=== PATIENT | female | born 1985 | race Caucasian/White ===

== ENCOUNTER 2016-06-30 11:21 | Emergency (ER) | payer MEDICAID ==
[2016-06-30 11:28] VITALS: BP 126/69
[2016-06-30] MEDS ORDERED: Tetan/Diph/Pertus SYR(Tdap)* 0.5 ML SYR(BOOSTRIX) use SYR IM ONE (11:32)
--- NOTE | 2016-06-30 11:36 | UC ---
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 Tet not up to date - History Of Current Complaint Chief Complaint: UCLaceration Stated Complaint: FINGER LACERATION Time Seen by Provider: 06/30/16 11:32 Hx Obtained From: Patient Laceration Location: Finger - RMF Mechanism Of Injury: Sharp Trauma Onset/Duration: Sudden Onset Severity: Moderate Pain Intensity: 6 Pain Scale Used: 0-10 Numeric Aggravating Factors: Movement Related History: Dominant Hand Right - Allergies/Home Medications Allergies/Adverse Reactions: Allergies Allergy/AdvReac Type Severity Reaction Status Date / Time Acetaminophen Allergy RASH,HIVES, Verified 01/05/16 10:21 [From Darvocet-N] ITCHING Cephalexin [From Keflex] Allergy Rash And Verified 01/05/16 10:21 Itching Penicillins [PCN] Allergy Rash Verified 01/05/16 10:21 Propoxyphene Allergy RASH,HIVES, Verified 01/05/16 10:21 [From Darvocet-N] ITCHING Home Medications: Home Medications Biotin 1 06/30/16 [History] PMH/Surg Hx/FS Hx/Imm Hx Previously Healthy: Yes Psychological History Of: Reports: Anxiety, Depression - Surgical History Surgical History: Yes Surgery Procedure, Year, and Place: 2002 LEFT ANKLE ORIF, [place]. 2003 [place]CRE[place] [facility] [place] B[place]AL BREAST REDUCTION[place]. 2004 MELANOMA REMOVED FROM BACK, [place]. 2008 & 2010 ARTHROSCOPIC SURGERY LEFT ANKLE, [facility] ;SPECIALIST; marcelina herrera 11/28/15 - Family History Known Family History: Negative: Cardiac Disease, Hypertension, Diabetes - Social History Alcohol Use: None Substance Use Type: None Smoking Status (MU): Never Smoked Tobacco Have You Smoked in the Last Year: No - Immunization History Most Recent Influenza Vaccination: unknown Most Recent Tetanus Shot: 03/02/14 Most Recent Pneumonia Vaccination: none Review of Systems Constitutional: Negative Skin: Negative Eyes: Negative ENT: Negative Respiratory: Negative Cardiovascular: Negative Gastrointestinal: Negative Genitourinary: Negative Motor: Decreased ROM Neurovascular: Negative Musculoskeletal: Negative Neurological: Negative Psychological: Negative All Other Systems Reviewed And Are Negative: Yes Physical Exam Triage Information Reviewed: Yes Appearance: Well-Appearing, No Pain Distress, Well-Nourished Vital Signs: Initial Vital Signs Temp 97.5 F 01/01/17 11:24 Pulse 61 06/30/16 11:24 Resp 18 06/30/16 11:24 BP 126/69 06/30/16 11:24 Pulse Ox 100 06/30/16 11:24 Eyes: Positive: Conjunctiva Clear ENT: Positive: Hearing grossly normal. Negative: Nasal congestion, Nasal drainage, Trismus, Muffled/hoarse voice Neck: Positive: Supple Respiratory: Positive: Lungs clear, Normal breath sounds, No respiratory distress, No accessory muscle use Cardiovascular: Positive: RRR, No Murmur Musculoskeletal: Positive: ROM Limited @ - RMF minimal ablity to flex DIP Neurological Exam: Other - decreased sensation radial aspect of RMF Skin Exam: Other - see image Laceration Repair - Laceration Repair 1 Description: Linear Laceration Size After Repair: Length (cm) - 1.9, Width (mm) - 2, Depth (mm) - 3- 4 Modified For Repair: No Type Injection: Digital Anesthesia Used: 1.0% Lido, 0.25% Marcaine Additive Used (in ml): Bicarb Cleansing Completed Via Routine Prep: Yes Irrigation With Pressure Irrigation Device: Yes Closure Material: Sutures Closure Method: Single Layer Suture Of: Skin Suture Type: Nylon - 5 5-0 Laceration Course/Dx - Differential Dx - Laceration/Wound Provider Diagnoses: finger laceration (RMF). suspected flexor tendon laceration. ?digital nerve laceration Discharge - Discharge Plan Condition: Stable Disposition: HOME Prescriptions: HYDROcodone/ACETAMIN 5-325 MG* [[place] 5-325 TAB*] 1 tab PO Q4H PRN #8 tab MDD 2 PRN Reason: Pain Patient Education Materials: Finger Laceration (ED), Tendon Laceration (ED) Referrals: Argelia Estrada MD [Medical Doctor] - (Call tomorrow and make an appt. Let them know you were seen here and we suspect you have laceration a flexor tendon in you right middle finger. You may also have lacerated a digital nerve.) Additional Instructions: elevate elevate elevate splint advil 2-3 4x day with food for pain recheck for concerns of infection you may remove your dressing in about 48 hours...gently clean with soap and water...dry your finger and apply a thin film of antibiotic ointment (I like aquaphor healing ointment or polysporin) reapply splint Images Hands: 1 - laceration/unable to flex dip. decreased sensation ulnar aspect of finger
[2016-06-30] MEDS ORDERED: Ibuprofen TAB* 600 MG PO ONE ×2 (11:48)
[2016-06-30] MEDS ORDERED: Bupivacaine 0.25% SDV* 30 ML ONE ×2 (11:51)
[2016-06-30] MEDS ORDERED: Lidocaine 1% MPF* 2 ML VIAL ONE ×2 (11:51)
[2016-06-30] MEDS ORDERED: Sodium Bicarbonate 8.4% IV* 50 ML VIAL ONE ×2 (11:51)
--- NOTE | 2016-06-30 12:18 | RAD ---
INDICATION: Laceration to right middle finger from serrated bread knife TECHNIQUE: 3 views of the right middle finger were obtained. FINDINGS: The bones are normal alignment. Joint spaces appear maintained. No fracture is seen. Soft tissue swelling and laceration is apparent overlying the palmar aspect of the right middle finger middle phalanx. IMPRESSION: SOFT TISSUE INJURY WITHOUT EVIDENCE OF ACUTE BONY ABNORMALITY OR SUBCUTANEOUS FOREIGN BODY.
== END 2016-06-30 13:11 | disposition home or self-care (01) ==
LOC: UCEAST 11:21
DX: S61.212A Laceration without foreign body of right middle finger without damage to nail, initial encounter (principal); W26.0XXA Contact with knife, initial encounter; Y93.G1 Activity, food preparation and clean up; Y92.9 Unspecified place or not applicable; Y99.9 Unspecified external cause status; Z23 Encounter for immunization
CPT/HCPCS: 12001; 12031; 73140; 90471; 90715; 99212; A9270-GY; G0463

== ENCOUNTER 2016-08-11 09:54 | Emergency (ER) | payer MEDICAID ==
[2016-08-11 10:13] VITALS: BP 123/74
--- NOTE | 2016-08-11 10:43 | UC ---
Hand/Wrist HPI - HPI Summary HPI Summary: ON 06/30/16 CUT RIGHT THIRD FINGER WITH BREAD KNIFE. CAME IN FOR LACERATION REPAIR , BUT HAD ALLERGIC REACTION TO HIBICLEANS. AT THE TIME THERE WAS CONCERN FOR FLEXOR TENDON DAMAGE, BUT AFTER SWELLING RETURNED TO NORMAL SO DID RANGE OF MOTION. HOWEVER, FOR LAST THREE DAYS, SITE OF LACERATION HAS BECOME RED, SWOLLEN AND TENDER. NO DISCHARGE. ABLE TO FLEX FINGER BUT ONLY TO 90 DEGREES. - History Of Current Complaint Chief Complaint: UCUpperExtremity Stated Complaint: FINGER PAIN Time Seen by Provider: 08/11/16 10:02 Hx Obtained From: Patient Hx Last Menstrual Period: on murina Onset/Duration: Gradual Onset, Lasting Days, Still Present, Worse Since - THIS MORNING Severity Initially: Moderate Severity Currently: Mild Character Of Pain: Dull, Aching Aggravating Factor(s): Flexion, Other - TOUCH Associated Signs And Symptoms: Positive: Swelling, Redness Related History: Dominant Hand Right - Allergies/Home Medications Allergies/Adverse Reactions: Allergies Allergy/AdvReac Type Severity Reaction Status Date / Time Acetaminophen Allergy RASH,HIVES, Verified 01/05/16 10:21 [From Darvocet-N] ITCHING Cephalexin [From Keflex] Allergy Rash And Verified 01/05/16 10:21 Itching Chlorhexidine Allergy Swelling Verified 08/11/16 10:14 [From Hibiclens] Penicillins [PCN] Allergy Rash Verified 01/05/16 10:21 Propoxyphene Allergy RASH,HIVES, Verified 01/05/16 10:21 [From Darvocet-N] ITCHING hib Allergy Severe Swelling Uncoded 08/11/16 10:14 PMH/Surg Hx/FS Hx/Imm Hx Previously Healthy: Yes Endocrine History Of: Denies: Diabetes, Thyroid Disease Cardiovascular History Of: Denies: Cardiac Disorders, Hypertension Respiratory History Of: Denies: COPD, Asthma GI/ History Of: Denies: Ulcer Psychological History Of: Reports: Anxiety, Depression - Surgical History Surgical History: Yes Surgery Procedure, Year, and Place: 2002 LEFT ANKLE ORIF, [place]. 2003 [place] [facility] [place]AL BREAST REDUCTION[place]. 2004 MELANOMA REMOVED FROM [facility], [place] gastric bypass 10/2015. 2008 & 2010 ARTHROSCOPIC SURGERY LEFT ANKLE, [facility] ;SPECIALIST; marcelina n y 11/27 - Family History Known Family History: Negative: Cardiac Disease, Hypertension, Diabetes - Social History Occupation: Employed Full-time Lives: With Family Alcohol Use: None Substance Use Type: None Smoking Status (MU): Never Smoked Tobacco Have You Smoked in the Last Year: No - Immunization History Most Recent Influenza Vaccination: unknown Most Recent Tetanus Shot: 03/02/14 Most Recent Pneumonia Vaccination: none Review of Systems Constitutional: Negative Skin: Other - REDNESS AND SWELLING RIGHT THIRD FINGER Eyes: Negative ENT: Negative Respiratory: Negative Cardiovascular: Negative Gastrointestinal: Negative Genitourinary: Negative Motor: Decreased ROM - RIGHT THIRD FINGER Neurovascular: Negative Musculoskeletal: Negative Neurological: Negative Psychological: Negative All Other Systems Reviewed And Are Negative: Yes Physical Exam Triage Information Reviewed: Yes Appearance: Well-Appearing, No Pain Distress, Well-Nourished Vital Signs: Initial Vital Signs Temp 97.3 F 08/11/16 10:06 Pulse 70 08/11/16 10:06 Resp 16 08/11/16 10:06 BP 123/74 08/11/16 10:06 Pulse Ox 100 08/11/16 10:06 Vital Signs Reviewed: Yes Eye Exam: Normal Eyes: Positive: Conjunctiva Clear ENT Exam: Normal ENT: Positive: Normal ENT inspection, Hearing grossly normal, TMs normal Dental Exam: Normal Neck exam: Normal Neck: Positive: Supple, Nontender, No Lymphadenopathy Respiratory Exam: Normal Respiratory: Positive: Chest non-tender, Lungs clear, Normal breath sounds, No respiratory distress, No accessory muscle use Cardiovascular Exam: Normal Cardiovascular: Positive: RRR, No Murmur, Pulses Normal, Brisk Capillary Refill Abdominal Exam: Normal Musculoskeletal: Positive: Strength Intact, ROM Limited @ - RIGHT THIRD FINGER 90 DEGREES OF FLEXION, Edema @ - RIGHT THIRD FINGER Neurological Exam: Normal Psychological Exam: Normal Psychological: Positive: Normal Response To Family Skin Exam: Normal Hand/Wrist Course/Dx - Differential Dx/Diagnosis Differential Diagnosis/HQI/PQRI: Cellulitis, Foreign Body, Infection, Puncture Wound, Sprain, Strain, Tendonitis, Tenosynovitis Provider Diagnoses: RIGHT THIRD FINGER CELLULITIS AT LACERATION REPAIR SITE - Physician Notifications Instructed by Provider To: Have Pt Call For Appt. Discharge - Discharge Plan Condition: Stable Disposition: HOME Prescriptions: Azithromycin TAB* [Zithromax TAB (Z-TEREZA) 250 mg #6 tabs] 250 mg PO DAILY #6 tab Patient Education Materials: Cellulitis (ED) Referrals: Jace Torres MD [Medical Doctor] - Shy Figueroa NP [Primary Care Provider] - Additional Instructions: PLEASE BEGIN COURSE OF ANTIBIOTICS AND CALL DR. TORRES AND SET UP APPOINTMENT FOR EVALUATION OF COMPLICATIONS REGARDING LACERATION
== END 2016-08-11 10:41 | disposition home or self-care (01) ==
LOC: UCEAST 09:54
DX: S61.212S Laceration without foreign body of right middle finger without damage to nail, sequela (principal); L03.011 Cellulitis of right finger; W26.0XXS Contact with knife, sequela; Y92.9 Unspecified place or not applicable; Z88.6 Allergy status to analgesic agent; Z88.1 Allergy status to other antibiotic agents; Z88.0 Allergy status to penicillin; Z98.84 Bariatric surgery status
CPT/HCPCS: 99212; G0463

== ENCOUNTER → 2016-09-30 08:55 | Day surgery (SDC) | payer MEDICAID, OTHER ==
[~2016-09-30 08:55] MED LIST: Buffered Lidocaine 1% SYRIN* 3 ML/SYR SYRINGE INTRADERM ONE; Bupivacaine 0.25% SDV* 30 ML ONE; Clindamycin 900 MG IVPREMIX(* 900 MG/50 ML SDV IV ONE; Lidocaine 2% PF* 5 ML VIAL ONE; Midazolam* 1 MG/ML 5 ML VIAL (5 MG) ONE; Ondansetron INJ* 2 MG/ML VIAL IV PRN; Propofol* 10 MG/ML 20 ML BTL IV PUSH ONE; fentaNYL* 50 MCG/ML 2 ML VIAL (100 MCG VIAL) ONE
[2016-09-30 13:34] VITALS: BP 120/65
--- NOTE | 2016-10-01 03:49 | OP ---
DATE OF OPERATION: 09/30/16 - [facility] DATE OF : 81 SURGEON: Jace Rice MD SALESPERSON RECREATIONAL VEHICLES: CODY Snow ANESTHESIOLOGIST: Dr. Davis. ANESTHESIA: Local MAC with digital block. PRE-OP DIAGNOSIS: Right middle finger radial digital nerve injury. POST-OP DIAGNOSIS: Right middle finger radial digital nerve partial laceration. OPERATIVE PROCEDURE: 1. Exploration, right middle finger radial digital nerve. 2. Debridement of small right middle finger radial digital nerve neuroma and neurolysis. 3. Wrapping of right middle finger radial digital nerve with AxoGuard nerve wrap. INDICATIONS: Sigrid is a 31-year-old who a few months ago had a traumatic laceration over the mid aspect of the middle phalanx over the radial digital nerve. Initially, it was feeling okay, but she did have diminished sensation, although not absent on the tip of the right middle finger. About short time later, she developed extensive pain in the right middle finger. I had seen her and she worked with therapy to get all of her motion back and we gave it some time to see if it would improve. Ultimately, she did get all of her motion back ; however, she is left with a painful area over the proximal middle phalanx and PIP joint over the radial digital nerve that hurts when she flexes and extends the finger and uses the hand. The finger tip sensation has remained completely unchanged since the injury in that there is still some sensation present, but it is definitely abnormal. Her Tinel sign was not advancing whatsoever. I had gotten an MRI and I did not see any other masses or any other reason to cause the pain in the right middle finger. Since she had plateaued in her improvement and she had no advancement in her Tinel sign, we talked about exploring the digital nerve and if there was a significant neuroma that was most of the size of the nerve, then I would resect the entire neuroma and any intact fibers and bridge the gap with a nerve graft. ESTIMATED BLOOD LOSS: 5 mL. COMPLICATIONS: None. FINDINGS: Very small old partial thickness injury to the radial digital nerve with just a very small neuroma formation. The vast majority of the nerve was intact. DESCRIPTION OF PROCEDURE: Sigrid was in the preoperative holding area and the correct site, side, and procedure were identified. We came back to the operating room where she got some anesthesia and then I performed a digital block with 0.25% Marcaine. The arm was then prepped and draped in the usual fashion with Betadine as she has an allergy to CHLORHEXIDINE and CHLORAPREP. A formal time-out was performed. We began by exsanguinating the extremity with each Esmarch and then the tourniquet was inflated to 250 mmHg. The mid axial approach to the finger was made over the PIP joint and down the length of the proximal phalanx coming back just a little bit over the A1 wilman area to facilitate raising the flap. The traumatic oblique laceration was then incorporated and the incision was brought back in Meera type fashion over the middle phalanx and then back to the DIP flexion crease. The radial digital nerve vascular bundle was identified proximally. It was then dissected out and full thickness flap was raised right off the flexor tendon sheath to expose the entire course of the radial digital nerve. Proximally over the middle phalanx where she had been having some pain, the nerve looked completely healthy and there were no signs of injury. When I got to the PIP joint, just 1 mm to distal to that, there was what looked like had been a very small partial thickness injury to the nerve. The neurolysis was then continued out distally and the portion of the nerve distal to this looked healthy and intact. I then attempted to bring in the microscope to get a better look at this; however, the only drape available for microscope was malfunctioning, so we were not able to do this. Under 3.5 times loupe magnification, I then brought in the jeweler forceps and the microdissecting scissors. The area of question was neurolysed and dissected free. The small neuroma coming off the nerve was debrided and clipped back between healthy tissue. Once I had completely debrided this, the nerve under loupe magnification looked very nice. Certainly, the vast majority of the nerve was intact and enough that I would never consider excising the rest of the nerve or excising that portion of the nerve is too many uninjured health axons would be compromised. I felt like I had healthy enough looking nerve at this point that I went ahead and opened an AxoGuard nerve wrap. This was trimmed back to the appropriate size. I then wrapped the entire course of the nerve from just proximal to the PIP joint out to the level of the DIP joint. This was secured in place with multiple simple 9-0 nylon sutures. The wrap came together very nicely. I flexed and extended the finger and it moved quite nicely and did not see like it would be a problem, so I went ahead and irrigated out the wound. I let the skin flaps fall back in place and then the wound was closed with 5-0 nylon suture. The wound was dressed with Xeroform, single 4x4, some 1-inch Kaitlin, and 1-inch Coban wrap. Tourniquet was then deflated and the finger pinked up immediately. She was then taken to the recovery room in stable condition. [id number]/CPS #: [id number]
== END | disposition home or self-care (01) ==
LOC: OREAST 08:55
PROVIDERS: ATTEND Orthopaedic Surgery Hand Surgery
DX: D36.12 Benign neoplasm of peripheral nerves and autonomic nervous system, upper limb, including shoulder (principal); S64.492D Injury of digital nerve of right middle finger, subsequent encounter; X58.XXXD Exposure to other specified factors, subsequent encounter; Y92.9 Unspecified place or not applicable
CPT/HCPCS: 88304; C1763; J2250; J2704; J3010

== ENCOUNTER 2016-11-17 14:00 | Emergency (ER) | payer MEDICAID ==
[2016-11-17 15:19] VITALS: BP 126/73
--- NOTE | 2016-11-17 15:53 | ED ---
Influenza-Like Illness - HPI Summary HPI Summary: 31 Y/O female being seen for C/O flu like illness, states has been having headache, dyspnea with activity, cough, body aches, lethargy over the last three days. States no appetite but denies nausea and vomiting. Denies chest pain or cardiac dyspnea. Medications have been reviewed on this visit. - History of Current Complaint Chief Complaint: UCGeneralIllness Time Seen by Provider: 11/17/16 15:14 Hx Obtained From: Patient Onset/Duration: Gradual Onset, Lasting Days Severity: Moderate Associated Signs & Symptoms: Fever, Myalgia, Cough, Sore Throat, Headache Related Hx: Possible Flu/Infectious Exposure - Risk Factors Influenza Risk Factors: Negative - Allergy/Home Medications Allergies/Adverse Reactions: Allergies Allergy/AdvReac Type Severity Reaction Status Date / Time Cephalexin [From Keflex] Allergy Severe Rash And Verified 09/30/16 09:38 Itching Chlorhexidine Allergy Severe Swelling Verified 09/30/16 09:38 [From Hibiclens] Penicillins [PCN] Allergy Intermediate Rash Verified 09/30/16 09:38 Acetaminophen Allergy Mild RASH,HIVES, Verified 09/30/16 09:38 [From Darvocet-N] ITCHING Propoxyphene Allergy Mild RASH,HIVES, Verified 09/30/16 09:38 [From Darvocet-N] ITCHING Home Medications: Home Medications Dextromethorphan-Guaifenesin [Robitussin Cough & Chest 20-400 mg/20Ml] [History] PMH/Surg Hx/FS Hx/Imm Hx Endocrine/Hematology History: Denies: Hx Diabetes, Hx Thyroid Disease Cardiovascular History: Denies: Hx Hypertension, Hx Pacemaker/ICD Respiratory History: Reports: Other Respiratory Problems/Disorders - DX OF PNEUMONIA 04/19/2013- none recently Denies: Hx Asthma, Hx Chronic Obstructive Pulmonary Disease (COPD) GI History: Denies: Hx Ulcer History: Denies: Hx Renal Disease Musculoskeletal History: Reports: Hx Arthritis - LEFT ANKLE, Hx Back Problems - L 4 L 5 ruptured discs Sensory History: Denies: Hx Contacts or Glasses, Hx Hearing Aid Opthamlomology History: Denies: Hx Contacts or Glasses Psychiatric History: Reports: Hx Anxiety, Hx Depression Denies: Hx Panic Disorder, Hx Substance Abuse - Cancer History Cancer Type, Location and Year: melanoma Hx Chemotherapy: No Hx Radiation Therapy: No - Surgical History Surgery Procedure, Year, and Place: 2003 LEFT ANKLE ORIF, [place]. 2003 [place] [facility] [place] 2006 BILATERAL BREAST REDUCTION, [place]. 2004 MELANOMA REMOVED FROM BACK, [place]. 2008 & 2010 ARTHROSCOPIC SURGERY LEFT ANKLE, [facility] ;SPECIALIST;. GASTRIC BYPASS - marcelina n y 11/28/15 Hx Anesthesia Reactions: Yes - 1 time after melanoma removed, couldnt wake up Infectious Disease History: No Infectious Disease History: Denies: Hx Clostridium Difficile, Hx Hepatitis, Hx Human Immunodeficiency Virus (HIV), Hx of Known/Suspected MRSA, Hx Shingles, Hx Tuberculosis, Hx Known/ Suspected VRE, Hx Known/Suspected VRSA, History Other Infectious Disease, Traveled Outside the in Last 30 Days - Family History Known Family History: Negative: Cardiac Disease, Hypertension, Diabetes - Social History Alcohol Use: None Substance Use Type: Reports: None Smoking Status (MU): Never Smoked Tobacco Have You Smoked in the Last Year: No Review of Systems Constitutional: Other Positive: Fever, Chills, Fatigue Eyes: Negative ENT: Other Positive: Nasal Discharge Cardiovascular: Negative Respiratory: Other Positive: Shortness Of Breath, Cough Physical Exam Vital Signs On Initial Exam: Initial Vitals Temp Pulse Resp BP Pulse Ox 98.0 F 59 16 126/73 100 11/17/16 15:15 11/17/16 15:15 11/17/16 15:15 11/17/16 15:15 11/17/16 15:15 Diagnostics - Vital Signs Vital Signs Temp Pulse Resp BP Pulse Ox 11/17/16 15:15 98.0 F 59 16 126/73 100 - Laboratory Lab Statement: Any lab studies that have been ordered have been reviewed, and results considered in the medical decision making process.
--- NOTE | 2016-11-17 16:07 | UC ---
FLU HPI - HPI Summary HPI Summary: 31 Y/O female presents C/O flu like illness x 3 days. C/O body aches, fever, sore throat, headache and dyspnea with activity. Denies nausea or vomiting, chest pain, or abdominal pain. States several family members have been ill. Medications reviewed during this visit. - History of Current Complaint Chief Complaint: UCGeneralIllness Stated Complaint: COUGH,HEADACHE,TIRED, Time Seen by Provider: 11/17/16 15:14 Hx Obtained From: Patient Hx Last Menstrual Period: on murina ?: No Onset/Duration: Gradual Onset, Lasting Days Severity Currently: Moderate Severity Initially: Mild Pain Intensity: 5 Pain Scale Used: 0-10 Numeric Associated Signs & Symptoms: Positive: Fever, Myalgia, Cough, Sore Throat, Headache Related Hx: Possible Flu/Infectious Exposure - Risk Factors Influenza Risk Factors: Negative - Allergy/Home Medications Allergies/Adverse Reactions: Allergies Allergy/AdvReac Type Severity Reaction Status Date / Time Cephalexin [From Keflex] Allergy Severe Rash And Verified 09/30/16 09:38 Itching Chlorhexidine Allergy Severe Swelling Verified 09/30/16 09:38 [From Hibiclens] Penicillins [PCN] Allergy Intermediate Rash Verified 09/30/16 09:38 Acetaminophen Allergy Mild RASH,HIVES, Verified 09/30/16 09:38 [From Darvocet-N] ITCHING Propoxyphene Allergy Mild RASH,HIVES, Verified 09/30/16 09:38 [From Darvocet-N] ITCHING Home Medications: Home Medications Dextromethorphan-Guaifenesin [Robitussin Cough & Chest 20-400 mg/20Ml] [History] PMH/Surg Hx/FS Hx/Imm Hx Previously Healthy: Yes Endocrine History Of: Denies: Diabetes, Thyroid Disease Cardiovascular History Of: Denies: Cardiac Disorders, Hypertension, Pacemaker/ICD Respiratory History Of: Denies: COPD, Asthma GI/ History Of: Denies: Ulcer, Renal Disease Psychological History Of: Reports: Anxiety, Depression - Surgical History Surgical History: Yes Surgery Procedure, Year, and Place: 2002 LEFT ANKLE ORIF, [place]. 2003 [place] SCRE[place] [facility] [place] 2006 BILATERAL BREAST REDUCTION, [place]. 2004 MELANOMA REMOVED FROM BACK, [place]. 2008 & 2010 ARTHROSCOPIC SURGERY LEFT ANKLE, [facility] ;SPECIALIST;. GASTRIC BYPASS - marcelina n y 11/28/15 - Family History Known Family History: Negative: Cardiac Disease, Hypertension, Diabetes - Social History Alcohol Use: None Substance Use Type: None Smoking Status (MU): Never Smoked Tobacco Have You Smoked in the Last Year: No - Immunization History Most Recent Influenza Vaccination: unknown Most Recent Tetanus Shot: 03/02/14 Most Recent Pneumonia Vaccination: none Review of Systems Constitutional: Fever, Fatigue Skin: Negative Eyes: Negative ENT: Sore Throat, Nasal Discharge Cardiovascular: Negative Gastrointestinal: Negative Genitourinary: Negative Motor: Negative Neurovascular: Negative Musculoskeletal: Myalgia Neurological: Negative Psychological: Negative All Other Systems Reviewed And Are Negative: Yes Physical Exam Triage Information Reviewed: Yes Appearance: Ill-Appearing Vital Signs: Initial Vital Signs Temp 98.0 F 11/17/16 15:15 Pulse 59 11/17/16 15:15 Resp 16 11/17/16 15:15 BP 126/73 11/17/16 15:15 Pulse Ox 100 11/17/16 15:15 Vital Signs Reviewed: Yes Eye Exam: Normal Eyes: Positive: Conjunctiva Clear ENT Exam: Normal Dental Exam: Normal Neck exam: Normal Neck: Positive: Supple, Nontender, No Lymphadenopathy Respiratory Exam: Normal Respiratory: Positive: Lungs clear, Normal breath sounds, No respiratory distress Cardiovascular Exam: Normal Cardiovascular: Positive: RRR Abdominal Exam: Normal Abdomen Description: Positive: Nontender, Soft Bowel Sounds: Positive: Present Musculoskeletal Exam: Normal Neurological Exam: Normal Psychological Exam: Normal Skin Exam: Normal Flu Course/Dx - Differential Dx/Diagnosis Differential Diagnosis/HQI/PQRI: Bronchitis, Influenza, Pneumonia, Upper Respiratory Infection Provider Diagnoses: viral illness Discharge - Discharge Plan Condition: Stable Disposition: HOME Patient Education Materials: Fever in Adults (GEN) Additional Instructions: Stay hydrated. May take Ibuprofen 600mg by mouth as needed for body aches / sore throat. Please return to walk in if symptoms do not improve or worsen over the next week.
--- NOTE | 2016-11-17 16:27 | RAD ---
INDICATION: Dyspnea COMPARISON: November 21, 2015 TECHNIQUE: PA and lateral dual-energy views were obtained. FINDINGS: Bones/Soft Tissues: There are no acute bony findings. Cardiomediastinal: The cardiomediastinal silhouette is normal. Lungs: There are no infiltrates. Pleura: There are no pleural effusions. Other: None IMPRESSION: NO ACTIVE DISEASE.
[2016-11-17] MEDS ORDERED: Ketorolac INJ* 30 MG/ML 1 ML VIAL IM ONE (17:23)
== END 2016-11-17 18:00 | disposition home or self-care (01) ==
LOC: UCEAST 14:00
DX: B34.9 Viral infection, unspecified (principal)
CPT/HCPCS: 71020; 81003; 87502; 96372; 99212; G0463; J1885

== ENCOUNTER 2016-11-19 07:06 | Emergency (ER) | payer MEDICAID ==
[2016-11-19 07:20] VITALS: BP 137/80
[2016-11-19] MEDS ORDERED: Albuterol 2.5 MG/3 ML NEB.SOL* (0.083%) INH ONE (07:53)
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
== END 2016-11-19 08:17 | disposition home or self-care (01) ==
LOC: UCEAST 07:06
DX: J40 Bronchitis, not specified as acute or chronic (principal); R06.2 Wheezing
CPT/HCPCS: 99212; G0463

== ENCOUNTER 2017-11-19 20:15 | Emergency (ER) | payer OTHER ==
[2017-11-19 20:39] VITALS: BP 120/84
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
[2017-11-19] MEDS ORDERED: HYDROcodone/ACETAMIN 5-325 MG* 1 TAB PO ONE (22:23)
[2017-11-19] MEDS ORDERED: Cyclobenzaprine TAB* 10 MG PO ONE (22:23)
[2017-11-19] MEDS ORDERED: Ibuprofen TAB* 600 MG PO ONE (22:26)
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
== END 2017-11-19 22:38 | disposition home or self-care (01) ==
LOC: UCEAST 20:15
DX: M54.2 Cervicalgia (principal); M54.6 Pain in thoracic spine; R51 Headache; Z85.820 Personal history of malignant melanoma of skin; Z98.84 Bariatric surgery status; Z88.6 Allergy status to analgesic agent; Z88.1 Allergy status to other antibiotic agents; Z88.0 Allergy status to penicillin; Z88.8 Allergy status to other drugs, medicaments and biological substances
CPT/HCPCS: 72020; 72050; 72070; 99213; A9270-GY; G0463

== ENCOUNTER 2018-10-23 23:06 | Emergency (ER) | payer OTHER ==
--- OUTSIDE RECORDS SUMMARY | 2018-10-23 23:32 | XMS REPORT | Continuity of Care Document ---
:1985 External Reference #:[id number] Author Name KATERINE Starr Address [address] [place] [address] Care Team Providers Name Role Phone KATERINE Starr Care Team Information Attendance Clerk Unavailable Payers Date Identification Numbers Payment Provider Subscriber Expires: 2014 Policy Number: [id number] Lifetime [employer]it [employer] Sigrid Martins PayID: [id number] [address] [address] TORSTEN Valerio [id number] Effective: 2013 Policy Number: [id number] [facility] Sigrid Martins Medicaid Expires: 2013 PayID: [id number] [address] [place] [address] Effective: 2011 Policy Number: [id number] [facility] Sigrid Martins Expires: 2011 Group Name: [employer] [address] [address] PayID: [id number] TORSTEN Valerio [id number] Effective: 2016 Policy Number: [id number] [employer] Medicaid Sigrid Martins Expires: 2017 PayID: [id number] [address] [place] [address] Effective: 2017 Policy Number: [id number] [employer] Sigrid Martins Group Number: [id number] [address] PayID: [id number] GIO Martínez [id number] Onset: 2017 Policy Number: [id number] [facility] Sigrid Martins PayID: [id number] [address] [place] [address] Advance Directives Description No Information Available Problems Active Problems Provider Date History of malignant melanoma of the Sally Suh M.D. Onset: 11/21 skin Obesity Sally Suh M.D. Onset: 11/21/2010 Family History Date Family Member(s) Observation Comments Father No Current Problems Mother No Current Problems Paternal Grandfather Cancer, Breast Maternal Grandmother due to CHF (Congestive Failure) () Paternal Aunts Breast Cancer Social History Type Date Description Comments Sex Unknown Education Highest Level Completed associate degree Lives With Daughter Lives With Son Lives With Spouse Diet Healthy, Well Balanced Diet , she took Bontrel for 2 months with 26 weight loss in 2006, would Sleep Typically sleeps 7 hours a night Sleep Reports normal sleep activity Occupation Addiction Professional ADL's/IADL's ADL's.independent.all ADL's Tobacco Use Start: Unknown Never Smoked Cigarettes ETOH Use Currently consumes alcohol ETOH Use consumes 1 beer per week Recreational Drug Use Never Used Drugs Tobacco Use Start: Unknown Patient has never smoked Exercise Type/Frequency exercises regularly Sun Exposure moderate amount of sun exposure Sun Exposure History of sunburns this past summer Sun Exposure Has experienced blistering from sunburns Sun Exposure Uses 15-30 SPF Seat Belt/Car Seat always uses seat belt STD's No STD History Allergies, Adverse Reactions, Alerts Active Allergies Reaction Severity Comments Date Penicillin hives 04/01/2002 Keflex yeast infection 11/20/2016 Darvocet hives 11/20/2016 Medications Active Medications SIG Qnty Indications Ordering Provider Date Vitamin D High daily 90caps Baudilio Carrera, 05/27/2018 Potency [facility]RE P[facility]OT-C 1000Unit Capsules B Complex Vitamins daily Baudilio Carrera, 05/27/2018 FI[facility]-C Capsules Vitamin D3 take one capsule 8caps E55.9 Baudilio Carrera, 05/13/2018 [id number] by mouth twice a [facility] [facility]-C Capsules week for 4 weeks Mirena inserted 2014 Unknown 20mcg/24HR IUD remove 2019 History Medications Zofran 1 by mouth every 14tabs Baudilio Franklin 09/23/2018 - 4mg Tablets 6 hours if needed LYNETTE Carrera-C 10/14/2018 for nausea Doxycycline Hyclate 1 tab by mouth 20caps J01.90 Donavan Conrad 07/28/2018 - bid x 10 days M.D. 10/14/2018 100mg Capsules Baclofen take one tablet 60tabs M54.2 Frankiewnti R. 05/13/2018 - 10mg Tablets by mouth twice a KATERINE Carrera 07/28/2018 day Permethrin apply to skin 120gm Donavan Conrad 03/31/2018 - 5% Cream from neck down. M.D. 05/12/2018 leave on 8-14 hours and then wash off. Rizatriptan Benzoate dissolve one 12tabs G43.009 Donavan Conrad 03/16/2018 - tablet in mouth M.D. 05/12/2018 10mg Tablets Dispers once daily may repeat after 2 hours if headache persists .max daily dose---3 tablets Tizanidine HCL 1 tab by mouth 90caps M54.2 Gaudencio 01/22/2018 - 4mg three times a day MD Hira 05/13/2018 Capsules as needed Hydrocodone-Acetamino 1 by mouth every 30tabs M54.2 Frankiewileana RJose Anegl 01/12/2018 - phen 4 hours if needed KATERINE Carrera 05/12/2018 7.5-325mg Tablets for severe pain Cyclobenzaprine HCL take 1 to 2 40tabs M54.2 Frankiewntleta R. 12/01/2017 - 5mg tablets by mouth KATERINE Carrera 05/12/2018 Tablets up to three times a day as needed for muscle spasm - may cause drowsiness Hydrocodone 1/2 - 2 by mouth 30tabs Donavan Conrad 12/01/2017 - Bitartrate/Acetaminop every 4 hours as M.D. 01/22/2018 hen needed pain 5-300mg Tablets Doxycycline Hyclate 1 by mouth twice 10caps Baudilio Franklin 06/16/2017 - a day for 5 days KATERINE Carrera 07/15/2017 100mg Capsules Clindamycin HCL take 1 capsule by 15caps S01.531A Baudilio Franklin 06/16/2017 - 300mg mouth three times KATERINE Carrera 07/15/2017 Capsules daily for 5 days Polymyxin B 1gtt in affected 10ml H10.89 Shy Mejias, 11/20/2016 - Sulfate/Trimethoprim eyes every 4 [facility] 11/27/2016 Sulfate hours while awake no more than 6 81892-1.1Unit/ML-% doses/day Solution Guaifenesin-Codeine 1-2 teaspoon 240ml Shy Mejias, 11/20/2016 - every 4-6 hours [facility] 06/16/2017 100-10mg/5ML Syrup as needed cough Escitalopram Oxalate 1 tab by mouth 30tabs Shy Mejias, 11/08/2014 - every day [facility] 11/20/2016 10mg Tablets Lotrisone apply to affected 45gm 112.1 Sally Mckeon 03/05/2014 - 1-0.05% Cream area bid-tid Jonnathan Suh 11/08/2014 Cephalexin take 1 tablet po 14tabs 682.0 Shy Mejias, 09/20/2013 - 500mg bid x 7 days [facility] 11/08/2014 Tablets Doxycycline Hyclate 1 tab po bid x 10 20tabs 486 Shy Mejias, 2012 - days [facility] 11/08/2014 100mg Tablets Levofloxacin 1 tablet po qd x 7tabs 486 Shy Meijas, 04/16/2013 - 500mg 7 days [facility] 04/27/2013 Tablets Ibuprofen take1 tablet qid 60tabs 724.2 Shy Mejias, 08/24/2012 - 600mg Tablets prn pain, take [facility] 11/08/2014 with food Cyclobenzaprine HCL 1-2 po tid for 45tabs 724.2 Shy Mejias, 2012 - 5mg muscle spasm, may [facility] 11/08/2014 Tablets cause drowsiness Oxycodone/Acetaminoph 1 po q 6 hours 10ten 724.2 Shy Mejias, 2012 - en prn severe pain [facility] 11/08/2014 5-325mg Tablets Paroxetine HCL 1/2 tablt for 7 30tabs 300.00 Sally Mckeon 12/25/2011 - 20mg days then 1 Jonnathan Suh 11/08/2014 Tablets tablet po qd Diflucan take 1 tablet now 1tabs 463 Shy Henry, 07/26/2011 - 150mg Tablets [facility] 11/08/2014 Cefadroxil 1 tab po daily X 10tabs 463 Shy Keenkelvey, 07/26/2011 - 1gm Tablets 10 days [facility] 11/08/2014 Flagyl one po tid for 7 21tabs 616.10 Shymick Mejias, 06/11/2011 - 500mg Tablets days, avoid any [facility] 11/08/2014 alcohol while taking. Septra DS one po bid for 10 20tabs Sally Mckeon 05/15/2011 - 800-160mg days Jonnathan Suh 05/25/2011 Tablets Flonase use one spray to 1units 465.8 Courtney CarrJose Angel 05/11/2011 - 50mcg/Act each nostril Jonnathan Merlos 11/08/2014 Suspension twice daily Loratadine 1 po qd 30tabs 465.8 Courtney Quach 05/11/2011 - 10mg Tablets Jonnathan Merlos 11/08/2014 Diflucan one po x1 prn 2tabs Aissatou Angel 04/17/2011 - 150mg Tablets yeast infectionRosana M.D. 05/11/2011 repeat x 1 in 5 days if persistent symptoms Cipro one bid x 3 days 6tabs Donavan Conrad, 12/25/2010 - 250mg Tablets Jonnathan 03/07/2011 Clindamycin Phosphate one applicator 1week 616.10 Baudilio Franklin 08/16/2010 - full into vaginal Storm, [facility] [facility]C 05/11/2011 2% Cream before bed for one week Clindamycin Phosphate one applicator 1week 616.10 Baudilio Franklin 06/26/2010 - full into vaginal Storm, [facility]C 07/06/2010 2% Cream before bed for one week Zithromax Z-Neftali take as directed 1tabs 461.1 Breanna Duncan, 04/04/2010 - 250mg [employer] 07/02/2010 Tablets Clotrimazole/Betameth Apply to rash on 15g 690.10 Sally Mckeon 01/22/2010 - asone Dipropionate chest bid as Jonnathan Suh 04/04/2010 needed 1-0.05% Cream Zithromax Z-Neftali 2 po on day 1, 1 6tabs 462 Blufftonnti R. 10/05/2009 - 250mg po on days 2-5 Storm, [facility] [facility] 10/15/2009 Tablets Bactrim DS 1 po bid for 10tabs Shawnti R. 05/26/2009 - 800-160mg urine infection, Storm, [employer] 06/05/2009 Tablets take for 5 days Physical Therapy eval and treat 719.47 Shawnti R. 05/12/2009 - left ankle pain, Storm, [employer] 04/04/2010 weakness and stiffness, improve strenght and flexibility Meloxicam 1/2 pill po qd 30tabs 719.47 Shawnti R. 05/12/2009 - 15mg Tablets for one week then Storm, [employer] 04/04/2010 increase to whole pill daily Zithromax Z-Neftali two po qd today 6tabs 682.6 Sally Mckeon 04/15/2009 - 250mg and then one po Jonnathan Suh 04/21/2009 Tablets qd for 4 days Robitussin ac 1-2 tsp po q4-6hr 150ml 465.9 Shawnti R. 09/05/2008 - prn cough/pain Storm, [employer] 04/04/2010 Zithromax Z-Neftali 2 po on day 1, 1 6tabs 465.9 Shawnti R. 09/05/2008 - 250mg po on days 2-5 Storm, [employer] 09/15/2008 Tablets Celexa 1 tab daily for 30tabs 311 Shawnti R. 02/12/2008 - 10mg Tablets depression, take Storm, [employer] 04/04/2010 with 20mg tab to equal 30mg dose Relpax take one po at 8tabs 346.91 Shawnti R. 02/12/2008 - 20mg Tablets the onset of Storm, [employer] 04/04/2010 migraine, repeat in 2 hurs if no relief Nuvaring Ud Apply Monthly 1units V70.0 Sally Mckeon 12/01/2007 - Ring Jonnathan Suh 04/04/2010 Celexa 1 po qd 30tabs 311 Sally Mckeon 10/07/2007 - 20mg Tablets Jonnathan Suh 04/04/2010 Percocet 1 tab q6h 20tabs Shy Wilber, 06/21/2003 - 5/325 mg M.D. 10/02/2007 Tablets Excuse For Work needed to miss 682.6 Sally Mckeon - work today for Jonnathan Suh 04/04/2010 medical illness Zithromax 2 on day one, Unknown - 250mg Tablets then one every 11/26/2016 day x4 days Ventolin HFA 2 puffs every Unknown - every 4-6 hours 06/16/2017 108(90Base) mcg/Act as needed Aerosol wheezing/tightnes s Cyclobenzaprine HCL Take 1 Tablet By Unknown - Mouth 3 Times 01/22/2018 10mg Tablets Daily as Needed For Pain Hydrocodone-Acetamino Take 1/2 - 2 30tabs M54.2 Donavan Conrad, - phen Tablet By Mouth M.D. 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) Injection Pediatric Hepatitis B Sally Suh, 01/30/1998 Vaccine (11-19 Yrs) Jonnathan Injection Immunizations CPT Code Status Date Vaccine Lot # [id number] Given 09/23/2018 Tdap (Adacel) [id number] 23206 Given 12/01/2007 Tdap (Adacel) [id number] 80638 Given 12/01/2007 Tdap (Adacel) 77134 Given 12/01/2007 HPV Vaccine, Gardasil [id number] 86067 Given 01/30/1998 DT (Adult) 91941 Given 10/14/1995 Hep B Vaccine, Ped/Adol Dose 3 Dose VFC (Engerix or Recombivax) 62783 Given 08/05/1995 Hep B Vaccine, Ped/Adol Dose 3 Dose VFC (Engerix or Recombivax) 27747 Given 04/28/1984 MMR (Measles,Mumps,Rubella) 90311 Refused 05/13/2018 Influenza Virus Vaccine, Quadrivalent, 3 Yr > Quad , Preserv Free 39993 Refused 07/15/2017 Influenza Virus Vaccine, Quadrivalent, 3 Yr > Quad , Preserv Free 96221 Refused 06/16/2017 Influenza Virus Vaccine, Quadrivalent, 3 Yr > Quad , Preserv Free Vital Signs Date Vital Result Comment 10/14/2018 11:28am Weight 188.00 lb Weight 85.277 kg BP Systolic 100 mmHg BP Diastolic 62 mmHg Heart Rate 71 /min Body Temperature 98.7 F Respiratory Rate 16 /min O2 % BldC Oximetry 99 % 09/23/2018 1:38pm Weight 189.00 lb Weight 85.730 kg BP Systolic 130 mmHg BP Diastolic 80 mmHg Heart Rate 74 /min Body Temperature 98.4 F Respiratory Rate 16 /min Height 68 inches 5'8" BMI (Body Mass Index) 28.7 kg/m2 O2 % BldC Oximetry 97 % 07/28/2018 9:46am Weight 191.00 lb Weight 86.638 kg BP Systolic 110 mmHg BP Diastolic 80 mmHg Heart Rate 65 /min Body Temperature 98.2 F Respiratory Rate 16 /min O2 % BldC Oximetry 99 % 05/27/2018 9:33am Weight 189.00 lb Weight 85.730 kg BP Systolic 138 mmHg BP Diastolic 76 mmHg Heart Rate 88 /min Body Temperature 98.5 F O2 % BldC Oximetry 99 % 05/13/2018 2:05pm Weight 191.00 lb Weight 86.638 kg BP Systolic 121 mmHg BP Diastolic 65 mmHg Heart Rate 84 /min Body Temperature 98.6 F O2 % BldC Oximetry 99 % 05/12/2018 9:45am Weight 188.00 lb Weight 85.277 kg BP Systolic 108 mmHg BP Diastolic 74 mmHg Heart Rate 79 /min Body Temperature 98.1 F Respiratory Rate 16 /min O2 % BldC Oximetry 98 % 03/16/2018 10:14am Weight 186.00 lb Weight 84.370 kg BP Systolic 100 mmHg BP Diastolic 62 mmHg Heart Rate 66 /min Body Temperature 98.2 F Respiratory Rate 14 /min 01/22/2018 10:20am Weight 183.00 lb Weight 83.009 kg BP Systolic 108 mmHg BP Diastolic 68 mmHg Heart Rate 89 /min Body Temperature 98.9 F Respiratory Rate 18 /min O2 % BldC Oximetry 98 % 01/12/2018 2:19pm Weight 183.00 lb Weight 83.009 kg BP Systolic 128 mmHg BP Diastolic 70 mmHg Heart Rate 88 /min Body Temperature 97.8 F Respiratory Rate 16 /min 12/01/2017 9:02am Weight 178.00 lb Weight 80.741 kg BP Systolic 138 mmHg BP Diastolic 72 mmHg Heart Rate 74 /min Body Temperature 98.4 F Respiratory Rate 16 /min 07/15/2017 2:31pm Weight 177.00 lb Weight 80.287 kg BP Systolic 112 mmHg BP Diastolic 58 mmHg Heart Rate 96 /min Body Temperature 98.8 F Height 68 inches 5'8" BMI (Body Mass Index) 26.9 kg/m2 06/16/2017 3:35pm Weight 176.00 lb Weight 79.834 kg BP Systolic 104 mmHg BP Diastolic 80 mmHg Heart Rate 76 /min Body Temperature 98.2 F Height 67.5 inches 5'7.50" BMI (Body Mass Index) 27.2 kg/m2 11/20/2016 9:50am Weight 173.00 lb Weight 78.473 kg BP Systolic 128 mmHg BP Diastolic 78 mmHg Heart Rate 68 /min Body Temperature 98.2 F Respiratory Rate 17 /min O2 % BldC Oximetry 98 % 05/24/2015 9:12am Weight 291.00 lb Weight 131.998 kg BP Systolic 124 mmHg BP Diastolic 68 mmHg Heart Rate 88 /min Body Temperature 98.7 F Height 67.5 inches 5'7.50" BMI (Body Mass Index) 44.9 kg/m2 12/21/2014 8:57am Weight 280.00 lb Weight 127.008 kg BP Systolic 140 mmHg BP Diastolic 88 mmHg Heart Rate 72 /min 11/08/2014 3:21pm Weight 281.00 lb Weight 127.462 kg BP Systolic 120 mmHg BP Diastolic 78 mmHg Heart Rate 52 /min 06/14/2014 3:40pm Weight 267.00 lb Weight 121.111 kg BP Systolic 122 mmHg BP Diastolic 70 mmHg Heart Rate 62 /min 03/05/2014 9:30am Weight 278.00 lb Weight 126.101 kg BP Systolic 120 mmHg BP Diastolic 60 mmHg Heart Rate 80 /min Body Temperature 98.1 F 12/13/2013 3:33pm Weight 264.00 lb Weight 119.750 kg BP Systolic 118 mmHg BP Diastolic 64 mmHg Heart Rate 80 /min 09/20/2013 4:31pm Weight 252.00 lb Weight 114.307 kg BP Systolic 122 mmHg BP Diastolic 60 mmHg Heart Rate 68 /min Right Visual Acuity Distance 20/25 Left Visual Acuity Distance 20/20 Both Visual Acuity Distance 20/20 09/01/2013 4:46pm Weight 250.00 lb Weight 113.400 kg BP Systolic 116 mmHg BP Diastolic 80 mmHg Heart Rate 80 /min Last Menstrual Period [id number] 04/27/2013 10:10am Weight 252.00 lb Weight 114.307 kg BP Systolic 124 mmHg BP Diastolic 84 mmHg Heart Rate 86 /min Body Temperature 98.3 F O2 % BldC Oximetry 98 % 04/16/2013 9:14am Weight 252.00 lb Weight 114.307 kg BP Systolic 98 mmHg BP Diastolic 74 mmHg Heart Rate 69 /min Body Temperature 97.4 F Height 67.5 inches 5'7.50" BMI (Body Mass Index) 38.9 kg/m2 O2 % BldC Oximetry 98 % 02/12/2013 4:19pm Weight 261.00 lb Weight 118.390 kg BP Systolic 130 mmHg BP Diastolic 80 mmHg Heart Rate 88 /min Body Temperature 98.9 F 08/24/2012 9:57am Weight 263.00 lb Weight 119.297 kg BP Systolic 120 mmHg BP Diastolic 80 mmHg Heart Rate 84 /min Body Temperature 99.1 F 01/17/2012 10:34am Weight 238.00 lb Weight 107.957 kg BP Systolic 122 mmHg BP Diastolic 78 mmHg Heart Rate 72 /min 12/25/2011 10:49am Weight 235.38 lb Weight 106.766 kg BP Systolic 100 mmHg BP Diastolic 70 mmHg Heart Rate 68 /min 08/21/2011 10:22am Weight 230.00 lb Weight 104.328 kg BP Systolic 120 mmHg BP Diastolic 74 mmHg Heart Rate 80 /min Body Temperature 98.4 F 07/26/2011 4:06pm Weight 230.00 lb Weight 104.328 kg BP Systolic 122 mmHg BP Diastolic 60 mmHg Heart Rate 60 /min Body Temperature 98.1 F 06/11/2011 4:46pm Weight 228.00 lb Weight 103.421 kg BP Systolic 110 mmHg BP Diastolic 76 mmHg Heart Rate 63 /min Body Temperature 98.6 F 05/11/2011 9:54am Weight 226.00 lb Weight 102.514 kg BP Systolic 110 mmHg BP Diastolic 78 mmHg Heart Rate 76 /min Body Temperature 98.6 F O2 % BldC Oximetry 99 % 11/21/2010 10:07am Weight 236.00 lb Weight 107.050 kg BP Systolic 128 mmHg BP Diastolic 70 mmHg Heart Rate 60 /min Body Temperature 98.4 F 06/26/2010 3:57pm Weight 240.00 lb Weight 108.864 kg BP Systolic 120 mmHg BP Diastolic 76 mmHg Heart Rate 80 /min Body Temperature 98.6 F 04/04/2010 2:24pm Weight 243.00 lb Weight 110.225 kg BP Systolic 126 mmHg BP Diastolic 74 mmHg Heart Rate 80 /min Body Temperature 97.3 F 01/22/2010 3:37pm Weight 248.00 lb Weight 112.493 kg BP Systolic 100 mmHg BP Diastolic 70 mmHg Heart Rate 80 /min Body Temperature 98.5 F BMI (Body Mass Index) 35.6 kg/m2 O2 % BldC Oximetry 99 % 12/04/2009 11:19am Weight 242.00 lb Weight 109.771 kg BP Systolic 118 mmHg BP Diastolic 72 mmHg Heart Rate 76 /min 10/05/2009 9:04am Weight 236.00 lb Weight 107.050 kg BP Systolic 122 mmHg BP Diastolic 68 mmHg Heart Rate 92 /min Body Temperature 99.8 F O2 % BldC Oximetry 98 % AT Room Air 08/03/2009 3:47pm Weight 238.00 lb Weight 107.957 kg BP Systolic 117 mmHg BP Diastolic 70 mmHg Heart Rate 72 /min Body Temperature 98.8 F 05/12/2009 4:33pm Weight 249.00 lb Weight 112.946 kg BP Systolic 102 mmHg BP Diastolic 80 mmHg Heart Rate 76 /min 04/15/2009 10:44am Weight 242.00 lb Weight 109.771 kg BP Systolic 130 mmHg BP Diastolic 78 mmHg Body Temperature 98.5 F 11/15/2008 10:20am Weight 244.00 lb Weight 110.678 kg BP Systolic 135 mmHg BP Diastolic 60 mmHg Heart Rate 80 /min 09/05/2008 3:49pm Weight 248.00 lb Weight 112.493 kg BP Systolic 130 mmHg BP Diastolic 70 mmHg Heart Rate 76 /min Body Temperature 98.3 F 02/12/2008 9:50am Weight 224.00 lb Weight 101.606 kg BP Systolic 112 mmHg BP Diastolic 60 mmHg Heart Rate 74 /min Body Temperature 98.1 F Height 67.5 inches 5'7.50" BMI (Body Mass Index) 34.6 kg/m2 12/01/2007 9:19am Weight 216.00 lb Weight 97.978 kg BP Systolic 120 mmHg BP Diastolic 70 mmHg Heart Rate 68 /min Height 67.5 inches 5'7.50" BMI (Body Mass Index) 33.3 kg/m2 Last Menstrual Period [id number] 10/30/2007 11:05am Weight 218.00 lb Weight 98.885 kg BP Systolic 110 mmHg BP Diastolic 60 mmHg Heart Rate 68 /min Height 67 inches 5'7" BMI (Body Mass Index) 34.1 kg/m2 10/07/2007 11:53am BP Systolic 132 mmHg BP Diastolic 54 mmHg Heart Rate 76 /min Height 67 inches 5'7" 10/02/2007 12:30pm Weight 218.00 lb Weight 98.885 kg BP Systolic 126 mmHg BP Diastolic 78 mmHg Heart Rate 82 /min Height 67 inches 5'7" BMI (Body Mass Index) 34.1 kg/m2 Last Menstrual Period [id number] 05/21/2002 12:26pm Weight 192.00 lb Weight 87.100 kg BP Systolic 120 mmHg BP Diastolic 80 mmHg 04/01/2002 2:38pm Weight 190.00 lb Weight 86.200 kg BP Systolic 120 mmHg BP Diastolic 60 mmHg Heart Rate 60 /min Respiratory Rate 16 /min Last Menstrual Period 0 01/20/2002 11:05am BP Systolic 100 mmHg BP Diastolic 66 mmHg Heart Rate 68 /min Body Temperature 97.3 F 01/06/2002 4:37pm Weight 178.00 lb BP Systolic 120 mmHg BP Diastolic 70 mmHg Results Test Date Facility Test Result H/L Range Note Laboratory test 10/14/2018 [facility] [place] [facility] TSH (Thyroid < pending> finding [phone] Stim Horm) Laboratory test 10/14/2018 [facility] [place] [facility] Magnesium < pending> finding [phone] Laboratory test 09/23/2018 In House Lab HCG DIP Test NEG Neg finding ([phone] - Laboratory test 07/15/2017 [facility] [place] [facility] Cytology SEE RESULT 1 finding [phone] BELOW CBC Auto Diff 07/15/2017 [facility] [place] [facility] White Blood 5.4 10^3/uL N 3.5-10.8 [phone] Count Red Blood Count 4.10 10^6/uL N 4.0-5.4 Hemoglobin 13.0 g/dL N 12.0-16.0 Hematocrit 38 % N 35-47 Mean Corpuscular Volume 93 fL N 80-97 Mean Corpuscular Hemoglobin 32 pg High 27-31 Mean Corpuscular HGB Conc 34 g/dL N 31-36 Red Cell Distribution Width 13 % N 10.5-15 Platelet Count 241 10^3/uL N 150-450 Mean Platelet Volume 8 um3 N 7.4-10.4 Abs Neutrophils 3.6 10^3/uL N 1.5-7.7 Abs Lymphocytes 1.2 10^3/uL N 1.0-4.8 Abs Monocytes 0.5 10^3/uL N 0-0.8 Abs Eosinophils 0.1 10^3/uL N 0-0.6 Abs Basophils 0 10^3/uL N 0-0.2 Abs Nucleated RBC 0 10^3/uL Granulocyte % 65.8 % N 38-83 Lymphocyte % 22.2 % Low 25-47 Monocyte % 9.2 % High 1-9 Eosinophil % 2.0 % N 0-6 Basophil % 0.8 % N 0-2 Nucleated Red Blood Cells % 0.1 Laboratory test 07/15/2017 [facility] [place] [facility] Vitamin B12 < pending> finding [phone] Comp Metabolic 07/15/2017 [facility] [place] [facility] Sodium 142 mmol/ L N 133-145 Panel [phone] Potassium 3.9 mmol/L N 3.5-5.0 Chloride 109 mmol/L N 101-111 Co2 Carbon Dioxide 30 mmol/L N 22-32 Anion Gap 3 mmol/L N 2-11 Glucose 60 mg/dL Low 70-100 Blood Urea Nitrogen 10 mg/dL N 6-24 Creatinine 0.74 mg/dL N 0.51-0.95 BUN/Creatinine Ratio 13.5 N 8-20 Calcium 8.8 mg/dL N 8.6-10.3 Total Protein 6.0 g/dL Low 6.4-8.9 Albumin 4.0 g/dL N 3.2-5.2 Globulin 2.0 g/dL N 2-4 Albumin/Globulin Ratio 2.0 N 1-3 Total Bilirubin 0.40 mg/dL N 0.2-1.0 Alkaline Phosphatase 71 U/L N 34-104 Alt 9 U/L N 7-52 Ast 13 U/L N 13-39 Egfr Non- 89.8 >60 Egfr 115.5 >60 2 Lipid Profile 07/15/2017 [facility] [place] [facility] Triglycerides 71 mg/dL 3 (Trig/Chol/HDL) [phone] Cholesterol 136 mg/dL 4 HDL Cholesterol 51.4 mg/dL 5 LDL Cholesterol 70 mg/dL 6 Iron & Iron Binding 07/15/2017 [facility] [place] [facility] Iron 46 g /dL Low 50-212 Capacity [phone] Unsaturated Iron Binding 270 g/dL Total Iron Binding Capacity 316 g/dL N 250-450 % Iron Saturation 15 % N 15-55 Laboratory test 07/15/2017 [facility] [place] [facility] Vitamin B12 157 pg/mL Low 180-914 7 finding [phone] Laboratory test 06/16/2017 In House Lab HCG DIP Test NEG Neg finding [phone] - Laboratory test 01/09/2016 [facility] [place] [facility] Clotest SEE RESULT 8 finding [phone] BELOW Basic Metabolic 11/21/2015 [facility] [place] [facility] Sodium 136 mmol /L N 133-145 Panel [phone] Potassium 4.2 mmol/L N 3.5-5.0 Chloride 101 mmol/L N 101-111 Co2 Carbon Dioxide 26 mmol/L N 22-32 Anion Gap 9 mmol/L N 2-11 Glucose 68 mg/dL Low 70-100 Blood Urea Nitrogen 11 mg/dL N 6-24 Creatinine 0.81 mg/dL N 0.51-0.95 BUN/Creatinine Ratio 13.6 N 8-20 Calcium 9.4 mg/dL N 8.6-10.3 Egfr Non- 81.9 N >60 Egfr 105.4 N >60 9 CBC Auto Diff 11/21/2015 [facility] [place] [facility] White Blood 6.2 10^3/uL N 3.5-10.8 [phone] Count Red Blood Count 4.50 10^6/uL N 4.0-5.4 Hemoglobin 13.5 g/dL N 12.0-16.0 Hematocrit 39 % N 35-47 Mean Corpuscular Volume 87 fL N 80-97 Mean Corpuscular Hemoglobin 30 pg N 27-31 Mean Corpuscular HGB Conc 35 g/dL N 31-36 Red Cell Distribution Width 14 % N 10.5-15 Platelet Count 264 10^3/uL N 150-450 Mean Platelet Volume 8 um3 N 7.4-10.4 Abs Neutrophils 4.2 10^3/uL N 1.5-7.7 Abs Lymphocytes 1.4 10^3/uL N 1.0-4.8 Abs Monocytes 0.4 10^3/uL N 0-0.8 Abs Eosinophils 0.1 10^3/uL N 0-0.6 Abs Basophils 0 10^3/uL N 0-0.2 Abs Nucleated RBC 0.01 10^3/uL N Granulocyte % 68.2 % N 38-83 Lymphocyte % 22.8 % Low 25-47 Monocyte % 6.8 % N 1-9 Eosinophil % 1.4 % N 0-6 Basophil % 0.8 % N 0-2 Nucleated Red Blood Cells % 0.1 N Urine DIP 05/24/2015 In House Lab Specific [place] 1.015 1.01-1.02 ([phone] - Urine pH 5.0 5-6 Leukocytes NEG Neg Urine Nitrites NEG Neg Total Protein, Urine NEG Neg Urine Glucose NORM Norm Urine Ketones NEG Neg Urobilinogen NORM Norm Urine Bilirubin NEG Neg Urine Blood NEG Neg Laboratory test 12/21/2014 [facility] [place] [facility] Vitamin B12 295 pg/mL N 180-914 10 finding [phone] CBC Auto Diff 12/21/2014 [facility] [place] Laboratory White Blood 6.9 10^3/uL N 4.8-10.8 [phone] Count Red Blood Count 4.76 10^6/uL N 4.0-5.4 Hemoglobin 14.1 g/dL N 12.0-16.0 Hematocrit 43 % N 35-47 Mean Corpuscular Volume 89 fL N 80-97 Mean Corpuscular Hemoglobin 30 pg N 27-31 Mean Corpuscular HGB Conc 33 g/dL N 31-36 Red Cell Distribution Width 14 % N 10.5-15 Platelet Count 280 10^3/uL N 150-450 Mean Platelet Volume 8 um3 N 7.4-10.4 Abs Neutrophils 4.9 10^3/uL N 1.5-7.7 Abs Lymphocytes 1.4 10^3/uL N 1.0-4.8 Abs Monocytes 0.4 10^3/uL N 0-0.8 Abs Eosinophils 0.1 10^3/uL N 0-0.6 Abs Basophils 0 10^3/uL N 0-0.2 Abs Nucleated RBC 0 10^3/uL N Granulocyte % 71.1 % N 38-83 Lymphocyte % 20.6 % Low 25-47 Monocyte % 6.0 % N 1-9 Eosinophil % 1.7 % N 0-6 Basophil % 0.6 % N 0-2 Nucleated Red Blood Cells % 0 N Comp Metabolic Panel 12/21/2014 [facility] Sodium 137 mmol/L N 133-145 [phone] Potassium 4.2 mmol/L N 3.5-5.0 Chloride 105 mmol/L N 101-111 Co2 Carbon Dioxide 25 mmol/L N 22-32 Anion Gap 7 mmol/L N 2-11 Glucose 78 mg/dL N 70-100 Blood Urea Nitrogen 11 mg/dL N 6-24 Creatinine 0.79 mg/dL N 0.51-0.95 BUN/Creatinine Ratio 13.9 N 8-20 Calcium 9.1 mg/dL N 8.6-10.3 Total Protein 6.8 g/dL N 6.4-8.9 Albumin 4.5 g/dL N 3.2-5.2 Globulin 2.3 g/dL N 2-4 Albumin/Globulin Ratio 2.0 N 1-3 Total Bilirubin 0.40 mg/dL N 0.2-1.0 Alkaline Phosphatase 89 U/L N 34-104 Alt 13 U/L N 7-52 Ast 14 U/L N 13-39 Egfr Non- 84.9 N >60 Egfr 109.2 N >60 11 Laboratory test 12/21/2014 [facility] [place] Laboratory C Reactive 15.88 mg/L High < 5.00 12 finding [phone] Protein Erythrocyte Sed Rate 28 mm/Hr High 0-14 Wound 06/14/2014 [facility] Wound/Misc (SEE 13 Culture/Sensi [phone] Culture-Gram NOTE) Stain CBC No Diff 05/01/2014 [facility] White Blood 12.9 High 4.8- [phone] Count 10^3/uL 10.8 Red Blood Count 4.44 10^6/uL N 4.0-5.4 Hemoglobin 13.8 g/dL N 12.0-16.0 Hematocrit 40 % N 35-47 Mean Corpuscular Volume 90 fL N 80-97 Mean Corpuscular Hemoglobin 31 pg N 27-31 Mean Corpuscular HGB Conc 34 g/dL N 31-36 Red Cell Distribution Width 15 % N 10.5-15 Platelet Count 269 10^3/uL N 150-450 Mean Platelet Volume 8 um3 N 7.4-10.4 Urine Culture And 04/03/2014 [facility] Urine Culture (SEE NOTE) 14 Sensitivities [phone] Cystic Fibrosis 09/01/2013 [facility] Cystic Fibrosis Blood Screen [phone] Specimen Cystic Fibrosis Specimen Id [id number] Cystic Fibrosis Order Date 03 Sep 2013 13:0 <SEE NOTE> 15 Cystic Fibrosis Reason for Ref See Comment 16 Cystic Fibrosis Method See Comment 17 Cystic Fibrosis Result See Comment 18 Cystic Fibrosis Interpretation See Comment 19 Cystic Fibrosis Reviewed By See Comment 20 Cystic Fibrosis Release Date 08 Sep 2013 14:4 <SEE NOTE> 21 Laboratory test 09/01/2013 In House Lab HCG DIP Test pos Neg finding (607)- - Laboratory test 02/12/2013 [facility] TSH (Thyroid 1.70 miu/mL 0.34-5.60 finding [phone] Stimulating Horm) Vad 08/21/2011 [facility] Vad Final Nonreactive Nonreactive 22 [phone] Syphilis Screen 08/21/2011 [facility] Syphilis IgG TNP Nonreactive [phone] RPR NON-REACTIVE Nonreactive RPR Titer TNP Pediatric/Maternal YES Laboratory test 08/21/2011 [facility] Cytology ------ 23 finding [phone] <SEE NOTE> GC/Chlamydia 08/21/2011 [facility] M - 24 Aptima [phone] <SEE NOTE> Urine DIP 08/21/2011 In House Lab Leukocytes TRACE Neg (607)- - Urine Nitrites NEG Neg Urine pH 5 5-6 Total Protein, Urine TRACE Neg Urine Glucose NORM Norm Urine Ketones NEG Neg Urobilinogen NORM Norm Urine Bilirubin NEG Neg Urine Blood NEG Neg Specific [place] NA Low 1.01-1.02 Laboratory test 07/26/2011 [facility] Throat Normal 25 finding [phone] Culture pharyngea <SEE NOTE> Laboratory test 07/26/2011 In House Lab Strep Screen NEG Neg finding (607)- - Urine Culture 07/05/2011 [facility] M 26 Sensitivi [phone] --- <SEE NOTE> Laboratory test 06/25/2011 [facility] [place] [facility] Monospot NEGATIVE Negative finding [phone] Bria Gould 06/25/2011 [facility] [place] [facility] Ebv Vca Igg Positive Negative Comprehensive [phone] Ebv Vca Igm Negative Negative Ebna Positive Negative Ebv Interpretation SEE BELOW () 27 Laboratory test 06/11/2011 [facility] Thin Prep W/HPV SEE NOTE 28 finding [phone] Vaginitis Dna 06/11/2011 [facility] Screen Trichomonas NEGATIVE Probe Screen [phone] Vaginalis Dna Screen Gardnerella Vaginalis Dna POSITIVE Screen Linda Species Dna NEGATIVE Urine DIP 06/11/2011 In House Lab Leukocytes NEG Neg (607)- - Urine Nitrites NEG Neg Urine pH 5-6 5-6 Total Protein, Urine NEG Neg Urine Glucose NORM Norm Urine Ketones NEG Neg Urobilinogen NORM Norm Urine Bilirubin NEG Neg Urine Blood NEG Neg Specific [place] N/A Low 1.01-1.02 GC/Chlamydia Aptima 06/26/2010 [facility] [place] [facility] Chlamydia N 29 [phone] Trachomatis Rna Genital Culture 06/26/2010 [facility] [place] [facility] Genital Culture BETA STREP 30 [phone] GROUP <SEE NOTE> Genital Culture PRESUMPTIVE GINNA <SEE NOTE> 31 Laboratory test 06/26/2010 [facility] GC (N. Gonorrhoeae) N 32 finding [phone] Rna Urine DIP 06/26/2010 In House Lab Leukocytes TRACE Neg (607)- - Urine Nitrites NEG Neg Urine pH 5 5-6 Total Protein, Urine NEG Neg Urine Glucose NORM Norm Urine Ketones NEG Neg Urobilinogen NORM Norm Urine Bilirubin NEG Neg Urine Blood NEG Neg Specific [place] NA Low 1.01-1.02 Laboratory test 12/04/2009 In House Lab HCG DIP Test POS Neg finding (607)- - Laboratory test 10/05/2009 In House Lab Strep Screen POS Neg finding (607)- - Laboratory test 09/05/2008 In House Lab Strep Screen neg Neg finding (607)- - Laboratory test 12/01/2007 [facility] Cytology ------ ------ 33 finding [phone] ---- <SEE NOTE> Urine DIP 12/01/2007 In House Lab Leukocytes NEG Neg (607)- - Urine Nitrites NEG Neg Urine pH 5 5-6 Total Protein, Urine NEG Neg Urine Glucose NORM Norm Urine Ketones NEG Neg Urobilinogen NORM Norm Urine Bilirubin NEG Neg Urine Blood NEG Neg Specific [place] N/A Low 1.01-1.02 Laboratory test 12/01/2007 In House Lab HCG DIP Test NEG Neg finding (607)- - Laboratory test 10/02/2007 [facility] TSH 1.38 0.34-5.60 34 finding [phone] MIU/ML Comp Metabolic 10/02/2007 [facility] [place] [facility] One Over 1.00 Panel [phone] Creatinine Anion Gap 4.0 mmol/L 2-11 35 Albumin/Globulin Ratio 1.4 1-3 Albumin 4.0 GM/DL 3.6-5.4 Alkaline Phosphatase 76 U/L 30-110 Alt (SGPT) 14 U/L 14-54 Ast (Sgot) 18 U/L 12-42 BUN 10 mg/dL 6-24 Calcium 9.0 mg/dL 8.7-10.2 Chloride 106 mmol/L 101-111 Co2 (Carbon Dioxide) 27.0 mmol/L 22-32 Globulin 2.8 GM/DL 2-4 Glucose 85 mg/dL 70-105 Potassium 4.0 mmol/L 3.5-5.0 Sodium 137 mmol/L 135-145 Bilirubin Total 0.7 mg/dL 0.4-1.5 Total Protein 6.8 GM/DL 6.2-8.1 BUN/Creatinine Ratio 10.0 8-20 Creatinine 1.0 mg/dL 0.5-1.4 Laboratory test 10/02/2007 [facility] Hemoglobin A1c 4.7 % <6.0 36 finding [phone] CBC With 10/02/2007 [facility] White Blood 6.0 CUMM 4.8-10.8 Electronic Diff [phone] Count Abs Basophils 0 0-0.2 Abs Eosinophils 0.1 0-0.6 Absolute Neutrophil Count 3.4 1.5-7.7 Abs Lymphs 2.0 1.0-4.8 Abs Mononuclear 0.5 0-0.8 Basophil % 0.5 % 0-2 Hematocrit 38 % 35-47 Hemoglobin 13.1 g/dL 12.0-16.0 Eosinophil % 1.5 % 0-6 Gran % 57.2 % 38-83 Lymph % 33.3 % 20-45 Mean Corpuscular HGB Cone 35 g/dL 32-36 Mean Corpuscular Hemoglob 30 pg 27-31 Mean Corpuscular Volume 86 um3 79-97 Mean Platelet Volume 8.3 um3 7.4-10.4 Mononuclear % 7.5 % 1-9 Platelet Count 289 CUMM 150-450 Red Cell Count 4.38 CUMM 4.2-5.4 Redcell Distribution WDTH 14 % 10.5-15 Laboratory test 05/17/2002 [facility] CERVIX BIOPSY finding [address] [place] [address] [phone] Chlamydia + GC 04/01/2002 [facility] Chlamydia By Dna NEGATIVE Group [phone] Probe GC By Dna Probe NEGATIVE Urine DIP 04/01/2002 In House Lab Leukocytes NEG Neg (517)- - Urine Nitrites NEG Neg Urine pH 6 5-6 Total Protein, Urine NEG Neg Urine Glucose NORM Norm Urine Ketones NEG Neg Urobolinogen NORM Norm Urine Bilirubin NEG Neg Urine Blood NEG Neg Laboratory test 04/01/2002 In House Lab Hemoglobin 13.4 finding ([phone])- - Laboratory test 04/01/2002 [facility] Conventional Pap REC' D-SEE finding [phone] Smear IMAGE CBC 01/20/2002 [facility] WBC 6.1 x10*3 4.3 - [phone] 10.9 RBC 4.74 x10*6 3.8 - 5.3 Hemoglobin 12.7 g/dL 11.8 - 15.8 Hematocrit 39.1 % 35.0 - 47.0 MCV 82.5 fl 82.0 - 98.0 MCH 26.9 pg Low 27.5 - 33.5 MCHC 32.5 g/dL 32.0 - 36.0 RDW 15.1 % High 11.5 - 14.5 Platelet Count 348 x10*3 130.0 - 400.0 MPV 8.3 fl 6.5 - 10.5 Lymphocytes 18.2 % 15.0 - 45.0 Monocytes 7.4 % 2.0 - 13.0 Eosinophils 1.7 % 0.0 - 6.0 Basophils 0.4 % 0.0 - 2.0 Neutrophil Absolute 4.4 x10*3 1.4 - 7.0 Lymphocytes Absolute 1.1 x10*3 1.0 - 3.4 Monocyte Absolute 0.5 x10*3 0.2 - 1.0 Eosinophil Absolute 0.1 x10*3 0.0 - 0.5 Basophil Absolute 0.0 x10*3 0.0 - 0.2 Segmented Neutrophils 72.3 % 44.0 - 74.0 Anisocytosis 1+ AB Comprehensive 01/20/2002 [facility] Albumin 4.2 g/dL 3.7 - 5.6 Metabolic [phone] SGPT (Alt) 13 U/L 5.0 - 35.0 Calcium 9.5 mg/dL 8.9 - 10.7 Carbon Dioxide 21 mmol/L Low 23.0 - 33.0 Chloride 107 mmol/L 99.0 - 107.0 Creatinine, Serum 0.8 mg/dL 0.6 - 1.2 Glucose 85 mg/dL 70.0 - 106.0 Alkaline Phosphatase 84 U/L 50.0 - 130.0 Potassium 4.6 mmol/L 3.4 - 5.0 Protein, Total 7.4 g/dL 6.3 - 8.6 Sodium 143 mmol/L 136.0 - 145.0 Sgot (Ast) 30 U/L 5.0 - 30.0 BUN 10 mg/dL 8.0 - 21.0 Bilirubin, Total 0.30 mg/dL 0.2 - 1.3 Laboratory test 01/20/2002 [facility] [place]razos Test NEGATIVE finding [phone] Laboratory test 02/02/2001 [facility] RPR NON-REACTIVE finding [phone] Laboratory test 02/02/2001 [facility] Pap Smear W/I NORMAL LIMIT finding [phone] GC By Dna Probe NEGATIVE Chlamydia + GC 02/02/2001 [facility] Chlamydia By Dna POSITIVE AB Group [phone] Probe Laboratory test 12/04/2000 [facility] Urine Culture FINAL 37 finding [phone] Gni Panel FINAL Gni Panel FINAL 1 SEE RESULT BELOW Name: LAKSHMITRISHA : [address]: Shy Mejias NP Acct: [id number] Unit: [id number] AGE: 32 Location: [facility] Re07/15/17 SEX: F Status: REG REF SPEC: [id number] JORGE L: 07/15/17-1603 [facility] DR: Shy Mejias CONSUMER SERVICES CONSULTANT REQ: [id number] RECD: 07/15/17 STATUS: SOUT _ ORDERED: TP IMAGE ANAL, HPV/Thin Prep, HPV 16/18 GENE COMMENTS: [id number] Negative for Intraepithelial lesion or Malignancy Fungal organisms morphologically consistent with Linda species A. Ectocervical/Endocervical Specimen Adequacy: Satisfactory of evaluation Transformation zone component identified Patient Information: HPV: High risk HPV RNA testing regardless of pap results. HPV 16/18 Genotype Reflex Actual Specimen Date: 07/15/17 LMP If Unknown: unknown Date of Last Specimen: 08/21/11 Date Time Test Result Flag (u) Normal Range 07/15/17 1603 @ HPV RNA RFLX GE Negative Negative @ @ The high-risk HPV types detected by the assay include: 16, @ 18, 31, 33, 35, 39, 45, 51, 52, 56, 58, 59, 66, and 68. Signed (signature on file) FLORES Farris(ASC) 07/16 1423 This Pap test was evaluated with the assistance of the [employer] Imaging System. Due to cytologic findings at the fence erector supervisor microscope, comprehensive manual rescreening by a Chief Dietitian may be required. The Pap Smear is a screening test designed to aid in the detection of premalignant and malignant conditions of the uterine cervix. It is not a diagnostic procedure and should not be used as the sole means of detecting cervical cancer. Both false- positive and false- negative reports do occur. Depending on your risk status, a Pap smear should be obtained and evaluated every 1-3 years. END OF REPORT * ML=Testing performed at Main Lab DEPARTMENT OF PATHOLOGY, [address] [place] [address] Nehemiah Griffin M.D. Director [facility] # [id number] 2 Because ethnic data is not always readily available, this report includes an eGFR for both -Americans and non- Americans. The National Kidney Disease Education Program (NKDEP) does not endorse the use of the MDRD equation for patients that are not between the ages of 18 and 70, are , have extremes of body size, muscle mass, or nutritional status, or are non- or non-. According to the National Kidney Foundation, irrespective of diagnosis, the stage of the disease is based on the level of kidney function: Stage Description GFR(mL/min/1.73 m(2)) 1 Kidney damage with normal or decreased GFR 90 2 Kidney damage with mild decrease in GFR 60-89 3 Moderate decrease in GFR 30-59 4 Severe decrease in GFR 15-29 5 Kidney failure <15 (or dialysis) 3 Desirable: <150 Borderline High: 150-199 High: 200-499 Very High: >500 4 Desirable: <200 Borderline High: 200-239 High: >239 5 Low: <40 Desirable: 40-60 High: >60 6 Desirable: <100 Near Optimal: 100-129 Borderline High: 130-159 High: 160-189 Very High: >189 7 Normal Range 180 to 914 Indeterminate Range 145 to 180 Deficient Range <145 8 SEE RESULT BELOW Name: SIGRID MARTINS : [address]: Bk Willis MD Acct: [id number] Unit: [id number] AGE: 31 Location: ENDO Re01/09/16 SEX: F Status: REG REF SPEC: [id number] JORGE L: 01/09/16-1350 [facility] DR: Bk Willis MD REQ: [id number] RECD: 01/09/16-1511 STATUS: LUIS MIGUEL BARGER DR: Shy Mejias CONSUMER SERVICES CONSULTANT _ SOURCE: GAS ANTRUM SPDESC: ORDERED: Clotest Procedure Result Reported Site Clotest Final 01/10/16- 827 ML Clotest Negative * ML - MAIN LAB ([facility]) . END OF REPORT * ML=Testing performed at Main Lab DEPARTMENT OF PATHOLOGY, [address] [place], [place] [address] Nehemiah Griffin M.D. Director [facility] # [id number] 9 Because ethnic data is not always readily available, this report includes an eGFR for both -Americans and non- Americans. The National Kidney Disease Education Program (NKDEP) does not endorse the use of the MDRD equation for patients that are not between the ages of 18 and 70, are , have extremes of body size, muscle mass, or nutritional status, or are non- or non-. According to the National Kidney Foundation, irrespective of diagnosis, the stage of the disease is based on the level of kidney function: Stage Description GFR(mL/min/1.73 m(2)) 1 Kidney damage with normal or decreased GFR 90 2 Kidney damage with mild decrease in GFR 60-89 3 Moderate decrease in GFR 30-59 4 Severe decrease in GFR 15-29 5 Kidney failure <15 (or dialysis) 10 Normal Range 180 to 914 Indeterminate Range 145 to 180 Deficient Range <145 11 Because ethnic data is not always readily available, this report includes an eGFR for both -Americans and non- Americans. The National Kidney Disease Education Program (NKDEP) does not endorse the use of the MDRD equation for patients that are not between the ages of 18 and 70, are , have extremes of body size, muscle mass, or nutritional status, or are non- or non-. According to the National Kidney Foundation, irrespective of diagnosis, the stage of the disease is based on the level of kidney function: Stage Description GFR(mL/min/1.73 m(2)) 1 Kidney damage with normal or decreased GFR 90 2 Kidney damage with mild decrease in GFR 60-89 3 Moderate decrease in GFR 30-59 4 Severe decrease in GFR 15-29 5 Kidney failure <15 (or dialysis) 12 Acute inflammation: >10.00 13 RUN DATE: 06/16/14 [facility] LAB LIVE PAGE 1 RUN TIME: 1250 [address] [place], [place] [address] Specimen Inquiry Name: Philomena MARTINS : [address]: Shy Mejias NP Acct: [id number] Unit: [id number] AGE: 29 Location: [facility] Re06/14/14 SEX: F Status: REG REF SPEC: [id number] JORGE L: 06/14/14-[address]: Shy Mejias NP REQ: [id number] RECD: 06/14/14 STATUS: COMP _ SOURCE: WOUND SPDESC:WOUND ORDERED: Culture Stain QUERIES: Medent Number [id number] Specimen Description LEFT BACK LESION WOUND Procedure Result Verified Site Wound/Misc Gram Stain Final 06/15/14- 0913 ML 4+ Neutrophils 4+ Epithelial Cells 2+ Gram Positive Cocci Wound/Misc Culture Final 06/16/14- 1250 ML Organism 1 NORMAL MICKEY Quantity 1+ END OF REPORT * ML=Testing performed at Main Lab DEPARTMENT OF PATHOLOGY, [facility] [place] [address] [place] [address] Nehemiah Griffin M.D. Director [facility] # [id number] 14 RUN DATE: 04/05/14 [facility] LAB LIVE PAGE 1 RUN TIME: [address] [facility] [employer] [address] [place], [place] [address] Specimen Inquiry Name: SIGRID MARTINS : [address]: Tyron Flores [facility] Acct: [id number] Unit: [id number] AGE: 29 Location: [facility] Re04/03/14 SEX: F Status: DEP REF SPEC: [id number] JORGE L: 04/03/[address]: Tyron Flores [facility] REQ: [id number] RECD: 04/03/14 STATUS: LUIS MIGUEL BARGER DR: Sally Suh MD _ SOURCE: URINE SPDESC: ORDERED: Urine Culture Procedure Result Verified Site Urine Culture Final 04/05/14- 1217 ML Organism 1 NORMAL MICKEY [place] Count 10-25,000 (Moderate) CFU/ML END OF REPORT * ML=Testing performed at Main Lab DEPARTMENT OF PATHOLOGY, [address] [place] [address] Nehemiah Griffin M.D. Director [facility] # [id number] 03 Sep 2013 13:06 16 RESULT: Not provided. Analyze for mutations in the CFTR gene. 17 The multiplex PCR based assay utilizing the Pictorama Mass Array platform is used to detect all 23 mutations specified in the [employer] (ACMG) standards for population based carrier screening ([id number], jepokU196, G542X, G85E, R117H, U8057M, 621+1 G>T, 711+1 G>T, U4006I (C>A and C>G), R334W, R347P, A455E, 1717-1 G>A, R553X, R560T, G551D, 1898+1 G>A, 2184delA, 2789+5 G>A, 3120+1 G>A, L5125V, 3659delC, and 3849+10kb C>T). Additionally, the deletion of exons 2-3, 296+2 T>A, E60X, R75X, 394delTT, 405+1 G>A, 406-1 G>A, E92X, 444delA, 457TAT>G, R117C, Y122X, 574delA, 663delT, G178R, 711+5 G>A, 712-1 G>T, H199Y, P205S, L206W, 627ker86, 935delA, 936delTA, ncderE947, 1078delT, G330X, T338I, R347H, R352Q, Q359K, T360K, 1288insTA, S466X (C>A), S466X (C>G), G480C, Q493X, 1677delTA, C524X, S549N, S549R, Q552X, A559T, 1811+1.6kb A>G, 1812-1 G>A, 1898+1 G>T, 1898+1 G>C, 1898+5 G>T, P574H, 5306vqy63, 2043delG, 7242qwv5>A, 1219tdz24ifi3, 2108delA, 2143delT, 2183AA>G, 2184insA, R709X, K710X, 2307insA, R764X, Q890X, 2869insG, 3171delC, 1043hcr1, K5949O, G8736U, E5330J (C>G), B9050R (C>A), U2933V, H1769E, W1835B, G9348D, 2613fnp6, J3720O, M5931O (TGG>TAG), 3791delC, U1821V, 3876delA, X7700T, Y0228T, 3905insT, and 4016insT mutations are detected. Poly T determination and confirmatory testing of homozygous results are performed as reflex tests when appropriate. 18 RESULT: None of the listed mutations were detected. 19 Having excluded the listed mutations, this result decreases the likelihood but does not exclude the possibility that this individual is a carrier of or affected with cystic fibrosis (CF). The degree to which this result reduces the patient's risk depends on the ethnic background and family history of the patient. Because this information was not provided, we are unable to provide a revised risk assessment at this time. If there is no family history of CF, the risk that this individual is a carrier of another CF mutation is listed below. Ethnicity Risk (Detection rate, Carrier Freq) Northern (91%, 07/24) Mixed 134 (82%, 07/24) Southern 115 (79%, 07/24) Eastern (77%, 07/29) Ashkenazi Jainism 801 (97%, 07/24) English [place] (91%, 07/24) 1338 (81%, ) Micronesian 1251 (82%, ) Micronesian* 1194 (54%, ) * does not apply to individuals of [place] ancestry These calculations were based on the mutation detection rates and population carrier frequencies noted in the chart and assume no family history of CF. Because there is little information available about the carrier frequency and mutation detection rates for individuals of other ethnicities, we are unable to provide a revised risk assessment for ethnicities other than those listed. If the patient has a family history, contact our laboratory for a revised risk assessment. If there is a suspected diagnosis of CF, correlation between other laboratory tests and clinical history is recommended. In addition, other genetic testing strategies such as full gene analysis of CFTR should be considered for identifying mutations that are not detected by this assay. Full gene analysis is clinically available (test code 89444). Contact the Molecular Genetics Laboratory at for further discussion regarding this option. A genetic consultation may be of benefit. CAUTIONS: Rare polymorphisms exist that could lead to false negative or positive results. If results obtained do not match the clinical findings, additional testing should be considered. Test results should be interpreted in context of clinical findings, family history, and other laboratory data. Misinterpretation of results may occur if the information provided is inaccurate or incomplete. Bone marrow transplants from allogenic donors will interfere with testing. Call [facility] for instructions for testing patients who have received a bone marrow transplant. Laboratory developed test. 20 RESULT: Andrea Diop MD, PhD 21 08 Sep 2013 14:41 Test Performed by: [place] [address] Production Generalist: Rei Vázquez III, M.D. 22 It is recognized that currently available assays for the detection of antibodies to HIV-1 and/or HIV-2 may not detect all infected individuals. HIV antibodies may be undetectable in some stages of the infection and in some clinical conditions. The performance of this assay has not been established for populations of infants or children. Assayed by Chemiluminescence Microparticle Immunoassay on the Swap[employer] Advia Centaur CP. Values obtained with different methods or kits cannot be used interchangeably.The diagnostic specificity of the ADVIA Centaur 1/O/2 Enhanced assay in the low risk population was 99.90% (6052/6058) with a 95% confidence interval of 99.78 to 99.96%. 23 ---- RUN DATE: 08/27/11 [facility] NMI LIVE PAGE 1 RUN TIME: 823 Specimen Inquiry RUN USER: INTERFACE -- Name: Bruno MARTINS Status: REG REF Re08/21/11 Age/Sex: 26/F Unit#: [id number] Location: [facility]. : [birth year] -- Specimen: [id number] SOUT Spec Date:08/21/11-[address]: Sally de guzman MD Spec Type: CYTOLOGY Received:08/21/11-1446 Copies to: SOURCE ECTOCERVICAL/ENDOCERVICAL Thin Prep with Reflex HPV Test PATIENT INFORMATION ACTUAL COLLECTION DATE: 08/21/11 DATE OF PRIOR SPECIMEN: 06/11/11 PATIENT HISTORY: IUD ADEQUACY OF SPECIMEN Satisfactory for evaluation * Transformation zone component identified * DIAGNOSIS EPITHELIAL CELL ABNORMALITIES * Squamous cell * Atypical squamous cells * Of undetermined significance (ASC-US) * NOTE Specimen sent to [facility] in [place], [place] on 08/22/11 by DB at 0922. Results will be reported separately in an addendum. ADDENDUM Addendum #1 Entered: 08/27/1131 [place] Human Papilloma Virus test results received with preparation and diagnosis completed by [facility], [place], [place]. Results: NEGATIVE High Risk (for types 16, 18, 31, 33, 35, 39, 45, 51, 52, 56, 58, 59, 68) This test was developed and its performance characteristics determined by Laboratory Medicine and Pathology, [facility], [place], [place]. It has not -- DEPARTMENT OF PATHOLOGY, [address] [place] [address] [facility] Permit #[id number] Jonnathan Mccall M.D. Psychiatric Rn Dir amador -- -- RUN DATE: 08/27/11 [facility] NMI LIVE PAGE 2 RUN TIME: 823 Specimen Inquiry RUN USER: INTERFACE -- Name: LAKSHMIBruno Status: REG REF Re08/21/11 Age/Sex: 26/F Unit#: [id number] Location: [facility] : 83 -- -- CONTINUED -- ADDENDUM (Continued) been cleared or approved by the U.S. Food and Drug Administration. Test Performed by: [facility] Dpt of lab Med and Pathology [address] [place] [id number] Production Generalist: Rei Vázquez III, M.D. Original hard copy report from [facility] [employer] is available upon request by calling Pathology at [phone]. Addendum Review Will MURPHY(ASCP) 08/27/11 -- This Pap test was evaluated with the assistance of the DomobiosPrep Pap Test Imaging System. Due to cytologic findings at the fence erector supervisor microscope, comprehensive manual rescreening by a Chief Dietitian was required. The Pap Smear is a screening test designed to aid in the detection of premalign ant and malignant conditions of the uterine cervix. It is not a diagnostic procedure a nd should not be used as the sole means of detecting cervical cancer. Both false- positiv e and false-negative reports do occur. Depending on your risk status, a Pap smear delfino uld be obtained and evaluated every one to three years. Initial evaluation performed by Slime MALONE(ASCP) 08/22/11 Final Interpretation electronically signed by: CATY SMITH 08/22/11 1151 -- -- DEPARTMENT OF PATHOLOGY, [address] [place] [address] [facility] Permit #[id number] Jonnathan Mccall M.D. Assistant Dir ector -- 24 RUN DATE: 08/23/11 [facility] NMI LIVE PAGE 1 RUN TIME: 134 Specimen Inquiry RUN USER: INTERFACE Name: Bruno MARTINS Status: REG REF Re08/21/11 Age/Sex: 26/F Unit#: [id number] Location: [facility] : 83 SPEC #: [id number] JORGE L: 08/21/11 STATUS: COMP REQ #: [id number] RECD: 08/21/11 [facility] [address]: Vikash LLANOS,Sally Martniez SOURCE: THIN PREP ENTR: 08/21/[address] [facility] [address]: RAY: ORDERED: GC/CHL APTIMA QUERIES: MEDENT REQUISITION # [id number] ACT WKST: GCCHL 08/23/11 #1 Procedure Result Verified Site > CHLAMYDIA TRACHOMATIS RNA Final 08/23/11- 1341 ML NEGATIVE FOR CHLAMYDIA TRACHOMATIS rRNA A negative result does not preclude the presence of a C.trachomatis or N.gonorrhoeae infection because results are dependent on adequate specimen collection, absence of inhibitors, and sufficient rRNA to be detected. Test results may be affected by improper specimen collection, improper specimen storage, technical error, or specimen mixup. Limitations of the Procedure: The Aptima Combo 2 Assay is not intended for the evaluation of suspected sexual abuse or for other medico-legal indications. For those patients for whom a false positive result may have adverse psychosocial impact, the CDC recommends retesting by a method using an alternate technology. Therapeutic failure or success cannot be determined with the Aptima Combo 2 Assay since nucleic acid may persist following appropriate antimicrobial therapy. Results from the APTIMA Combo 2 Assay should be interpreted in conjunction with other laboraotry and clinical data available to the clinician. Performance characteristics for detecting C. trachomatis and N. gonorrhoeae are derived from high prevalence populations. Positive results in low prevalence populations should be interpreted carefully with the understanding that the likelihood of a false positive may be higher than a true positive. DEPARTMENT OF PATHOLOGY, [address] [place] [address] [facility] Permit #[id number] Nehemiah Griffin M.D. Director Caty Smith M.D. Carrot Tier RUN DATE: 08/23/11 [facility] NMI LIVE PAGE 2 RUN TIME: 1341 Specimen Inquiry RUN USER: INTERFACE Name: Bruno MARTINS Status: REG REF Re08/21/11 Age/Sex: 26/F Unit#: [id number] Location: [facility] : 83 -- -- CONTINU ED Procedure Result Verified Site > GC (N. GONORRHOEAE) RNA Final 08/23/11- 1341 ML NEGATIVE FOR NEISSERIA GONORRHOEAE rRNA A negative result does not preclude the presence of a C.trachomatis or N.gonorrhoeae infection because results are dependent on adequate specimen collection, absence of inhibitors, and sufficient rRNA to be detected. Test results may be affected by improper specimen collection, improper specimen storage, technical error, or specimen mixup. Limitations of the Procedure: The Aptima Combo 2 Assay is not intended for the evaluation of suspected sexual abuse or for other medico-legal indications. For those patients for whom a false positive result may have adverse psychosocial impact, the CDC recommends retesting by a method using an alternate technology. Therapeutic failure or success cannot be determined with the Aptima Combo 2 Assay since nucleic acid may persist following appropriate antimicrobial therapy. Results from the APTIMA Combo 2 Assay should be interpreted in conjunction with other laboraotry and clinical data available to the clinician. Performance characteristics for detecting C. trachomatis and N. gonorrhoeae are derived from high prevalence populations. Positive results in low prevalence populations should be interpreted carefully with the understanding that the likelihood of a false positive may be higher than a true positive. [facility] Permit #[id number] [address] [place] [id number] DEPARTMENT OF PATHOLOGY, [address] [place] [address] [facility] Permit #[id number] Jonnathan Mccall M.D. Carrot Tier 25 Normal pharyngeal mickey 26 RUN DATE: 07/07/11 [facility] NMI LIVE PAGE 1 RUN TIME: 7935 Specimen Inquiry RUN USER: INTERFACE Name: SIGRID MARTINS Status: JESUS MANUEL CLI Re07/05/11 Age/Sex: 26/F Unit#: [id number] Location: [facility] : 83 SPEC #: [id number] JORGE L: 07/05/11 STATUS: LUIS MIGUEL REQ #: [id number] RECD: 07/05/[address] [facility] [address]: Matilde LLANOS,Armando Quach SOURCE: URINE ENTR: 07/05/[address]: Vikash LLANOS, Sally Martinez SPDESC: ORDERED: URINE C S QUERIES: SPECIMEN DESCRIPTION: URINE, CLEAN CATCH Procedure Result Verified Site > URINE CULTURE SENSITIVI Final 07/07/11- 1331 ML Organism 1 ESCHERICHIA COLI COLONY COUNT >100,000 ORGANISMS/ML (MANY) 1. ESCHERICHIA COLI RX M.I.C. ------ --------- AMIKACIN S <=2 LEVOFLOXACIN R >=8 AMPICILLIN R >=32 CEFAZOLIN R >=64 CEFTRIAXONE S <=1 CIPROFLOXACIN R >=4 GENTAMICIN R >=16 TIGECYCLINE S <=0.5 CEFTAZIDIME S <=1 IMIPENEM S <=1 NITROFURANTOIN S <=16 TRIMETH-SULFA R >=320 *These antibiotics are not available in the [facility] Formulary. Contact the Microbiology Department for any additional antibiotic reporting. - [facility] Permit #[id number] [facility] [employer] [facility] [address] DEPARTMENT OF PATHOLOGY, [facility] [employer] [place], [place] [address] [facility] Permit #[id number] Nehemiah Griffin M.D. Director Caty Smith M.D. Carrot Tier 27 RESULT: Results suggest past infection. In most populations, at least 90% of the adult population will have been infected with EBV sometime in the past and therefore, will be positive for anti-VCA/IgG and anti- EBNA. Antibodies to EBNA develop 6-8 weeks after primary infection and remain present for life. Presence of VCA/ IgM antibodies indicates recent primary infection with EBV. Test Performed by: [facility] Dpt of Lab Med and Pathology [address] [place] [address] Production Generalist: Rei Vázquez III, M.D. 28 [email or web address], [employer] DEPARTMENT OF PATHOLOGY or Extension 5715 COMBINED HPV / COAL BRIQUETTE MACHINE OPERATOR CYTOLOGY REPORT PATIENT: Bruno MARTINS : 1985 AGE: 26 Y SEX: F ACCT: [id number] PROCEDURE DATE: 06/11/2011 DATE RECEIVED: 06/12/2011 REQUESTING PHYSICIAN: SALLY SUH MD LOCATION: [facility] Case No. [id number] PATIENT DATA: [id number] SPECIMEN SUBMITTED: * * (HPVR) THINPREP W/HPV * * CERVICAL RELEVANT HISTORY: Comment: LMP 1 WEEK AGO SPECIMEN ADEQUACY SATISFACTORY FOR EVALUATION, ENDOCERVICAL TRANSFORMATION ZONE COMPONENT PRESENT GENERAL CATEGORIZATION EPITHELIAL CELL ABNORMALITY: SEE "INTERPRETATION/RESULT" INTERPRETATION/ RESULT ATYPICAL SQUAMOUS CELLS OF UNDETERMINED SIGNIFICANCE. ICD-9 DIAGNOSIS CODE 795.01 RECOMMENDATIONS See Related Microbiology Result below. RELATED MICROBIOLOGY RESULT: HPV, HIGH RISK ONLY Source: CERVICAL Result: Negative for high/intermediate risk HPV types 16/18/31/33/35/39/45/51/52/56/58/59/68 Test method: Hybrid Capture 2. See www.asccp.org and articles in Am J of Obstet Gynecol 2007 Oct; 197(4), for current consensus recommendation guidelines. Thin Prep Pap tests are examined with an FDA approved location-guidance system. ADDITIONAL COPIES SENT TO: Screened/Rescreened Electronically Signed Sign Out Date/Time: by: by: RAFA GONZALEZ MD 06/17/2011 10:56 PATHOLOGIST The Pap smear is a screening test designed to aid in the detection of premalignant and malignant conditions of the uterine cervix. It is not a diagnostic procedure and should not be used as the sole means of detecting cervical cancer. Both false-positive and false-negative reports do occur. Performed @ [facility], [facility] [address] [place], [place] [id number] 29 NEGATIVE FOR CHLAMYDIA TRACHOMATIS rRNA A negative result does not preclude the presence of a C.trachomatis or N.gonorrhoeae infection because results are dependent on adequate specimen collection, absence of inhibitors, and sufficient rRNA to be detected. Test results may be affected by improper specimen collection, improper specimen storage, technical error, or specimen mixup. 30 BETA STREP GROUP B MOD^MODERATE^QTY Susceptibility testing of penicillins and other B-lactams approved by FDA for treatment of Streptococcus pyogenes (Group A Strep) and Streptococcus agalactiae (Group B Strep) is not necessary for clinical purposes and need not be done routinely, since as with vancomycin, resistant strains have not been recognized. (CLSI K631-S26;p.66) Positive isolates will be saved for one week. Please call the Microbiology Laboratory if further susceptibility testing is needed. 31 PRESUMPTIVE GINNA. VAGINALIS M^MANY^QTY 32 NEGATIVE FOR NEISSERIA GONORRHOEAE rRNA A negative result does not preclude the presence of a C.trachomatis or N.gonorrhoeae infection because results are dependent on adequate specimen collection, absence of inhibitors, and sufficient rRNA to be detected. Test results may be affected by improper specimen collection, improper specimen storage, technical error, or specimen mixup. 33 ---- RUN DATE: 12/02/07 [facility] NMI LIVE PAGE 1 RUN TIME: 1536 Specimen Inquiry RUN USER: INTERFACE -- Name: SIGRID MARTINS Status: REG REF Re12/01/07 Age/Sex: 22/F Unit#: [id number] Location: [facility] : 83 -- Specimen: [id number] SOUT Spec Date: 12/01/[address]: Sally holt MD Spec Type: CYTOLOGY Received: 12/02/07 Copies to: SOURCE ECTOCERVICAL/ENDOCERVICAL Thin Prep with Reflex HPV Test PATIENT INFORMATION ACTUAL COLLECTION DATE: 12/01/07 PATIENT HISTORY: Last menstrual period 10/05, Prior ADEQUACY OF SPECIMEN Satisfactory for evaluation * Transformation zone component identified * DIAGNOSIS NEGATIVE FOR INTRAEPITHELIAL LESION OR MALIGNANCY * This Pap test was evaluated with the assistance of the ThinPrep Pap Test Imaging System. The Pap Smear is a screening test designed to aid in the detection of premalign ant and malignant conditions of the uterine cervix. It is not a diagnostic procedure a nd should not be used as the sole means of detecting cervical cancer. Both false- positive and false-negative reports do occur. Depending on your risk status, a Pap smear delfino uld be obtained and evaluated every one to three years. Initial evaluation performed by Will MURPHY([facility]) 12/02/07 Final Interpretation electronically signed by: Will MURPHY([facility]) 12/02/07 1536 -- -- DEPARTMENT OF PATHOLOGY, [address] [place] [address] [facility] Permit #[id number] Nehemiah Griffin M.D. Director of Laboratories -- 34 NON FASTING 35 Anion gap measurement may be of limited value in the presence of any alkalosis, especially in a combined acid base disorder. . 36 THERAPEUTIC TARGET FOR THE TREATMENT OF DIABETES MELLITUS PATIENTS IS <7% HBA1C, AND IN SELECTIVE PATIENTS <6.0%. PLEASE REFER TO [place] [employer] DIABETIC CARE GUIDELINES FOR FURTHER INFORMATION. 37 Source: URINE,VOIDED Isolate #1: Escherichia coli >100,000 col/ml ANTIBIOTIC ANDREE Inter Cost Amoxicillin/CA <=8 Susceptible 4 Ampicillin 2 Susceptible 3 Carbenicillin <=16 Susceptible 0 Cefazolin <=8 Susceptible 4 Cefoxitin <=2 Susceptible 0 Cefuroxime - Axetil <=4 Susceptible 5 Cefuroxime - Sodium <=4 Susceptible 5 Gentamicin <=0.5 Susceptible 3 Nalidixic Acid <=16 Susceptible 0 Nitrofurantoin <=32 Susceptible 1, UR* Ofloxacin <=1 Susceptible PO 1, IV 3 Tetracycline <=1 Susceptible 1 Trimethoprim/Sulfa <=10 Susceptible PO 1, IV 4 Levofloxacin <=1 Susceptible PO 2, IV 4 --- COST CODES: The cost codes for the antibiotics reported provide the relative costs of these antibiotics per day of therapy. The higher the number, the more expensive the antibiotic is. NOTE: 'UR' indicates that the antibiotic is appropriate for the treatment of urinary tract infections only. --- If additional antimicrobial susceptibility test results for hospital inpatients are needed for antibiotics not listed on this report, please contact the Microbiology laboratory at [phone]. --- Source: URINE,VOIDED Isolate #1: Escherichia coli >100,000 col/ml ANTIBIOTIC ANDREE Inter Cost Amoxicillin/CA <=8 Susceptible 4 Ampicillin 2 Susceptible 3 Carbenicillin <=16 Susceptible 0 Cefazolin <=8 Susceptible 4 Cefoxitin <=2 Susceptible 0 Cefuroxime - Axetil <=4 Susceptible 5 Cefuroxime - Sodium <=4 Susceptible 5 Gentamicin <=0.5 Susceptible 3 Nalidixic Acid <=16 Susceptible 0 Nitrofurantoin <=32 Susceptible 1, UR* Ofloxacin <=1 Susceptible PO 1, IV 3 Tetracycline <=1 Susceptible 1 Trimethoprim/Sulfa <=10 Susceptible PO 1, IV 4 Levofloxacin <=1 Susceptible PO 2, IV 4 --- COST CODES: The cost codes for the antibiotics reported provide the relative costs of these antibiotics per day of therapy. The higher the number, the more expensive the antibiotic is. NOTE: 'UR' indicates that the antibiotic is appropriate for the treatment of urinary tract infections only. --- If additional antimicrobial susceptibility test results for hospital inpatients are needed for antibiotics not listed on this report, please contact the Microbiology laboratory at [phone]. --- Procedures Date Code Description Status 06/14/2014 40440 I&D Of Abscess Completed Encounters Type Date Location Provider Dx Diagnosis Office Visit 09/23/2018 [facility] Baudilio Carrera, Z00.00 Encntr for general 1:30p FIRE PILOT-C adult medical exam w/o abnormal findings R19.7 Diarrhea, unspecified Z23 Encounter for immunization Office Visit 07/28/2018 9:45a [facility] Donavan Conrad, J01.90 Acute sinusitis, M.D. unspecified Office Visit 05/27/2018 9:30a [facility] Humbertoi RJose Angel M54.2 Cervicalgia Storm, FIRE PILOT-C E55.9 Vitamin D deficiency, unspecified Office Visit 05/13/2018 [facility] Humbertoi RJose Angel M54.12 Radiculopathy, 2:15p Storm, FIRE PILOT-C cervical region M54.2 Cervicalgia E55.9 Vitamin D deficiency, unspecified Office Visit 03/16/2018 10:00a [facility] Conrad, G43.009 Migraine w/o aura, M.D. not intractable, w/o status migrainosus Office Visit 07/15/2017 2:15p Main Office Shy Z00.00 Encntr for general Henry, adult medical exam FIRE PILOT-C w/o abnormal findings D64.9 Anemia, unspecified Office Visit 06/16/2017 3:30p Main Office Baudilio Franklin S01.531A Puncture wound Storm, FIRE PILOT-C without foreign body of lip, init encntr Office Visit 11/20/2016 9:45a Main Office Shy H10.89 Other conjunctivitis Henry, FIRE PILOT-C Office Visit 05/24/2015 9:00a Main Office Shy Z00.00 Encntr for general Henry, adult medical exam FIRE PILOT-C w/o abnormal findings Office Visit 12/21/2014 9:00a Main Office Shy 356.8 Neuropathy Other Henry, Spec Idiopathic FIRE PILOT-C Peripheral Office Visit 11/08/2014 4:00p Main Office Shy 300.00 Anxiety State Unspec Henry, FIRE PILOT-C Office Visit 03/05/2014 9:30a Main Office Sally Mckeon 112.1 Candidiasis The Jonnathan Suh Vulva & Vagina Office Visit 12/13/2013 3:45p Main Office Shy 706.2 Sebaceous Cyst Henry, FIRE PILOT-C Office Visit 09/20/2013 4:15p Main Office Shy 682.0 Cellulitis & Abscess Henry, Face [facility]RE PILOT-C Office Visit 09/01/2013 4:30p Main Office Shy 780.79 Malaise And Fatigue Henry, Other FIRE PILOT-C V18.9 Family History Genetic Disease Carrier Office Visit 04/27/2013 10:15a Main Office Shy Henry, 486 Pneumonia Organism FIRE PILOT-C Unspec Office Visit 04/16/2013 9:15a Main Office Syh Mejias, 486 Pneumonia Organism FIRE PILOT-C Unspec Office Visit 02/12/2013 4:00p Main Office Shy Mejias, 246.9 Thyroid Disorders FIRE PILOT-C Unspec Office Visit 08/24/2012 9:45a Main Office Shy Mejias, 724.2 Lumbago FIRE PILOT-C Office Visit 01/17/2012 10:15a Main Office Sally Mckeon 300.00 Anxiety State Unspec Jonnathan Suh Office Visit 12/25/2011 10:45a Main Office Shy Mejias, 300.00 Anxiety State Unspec FIRE PILOT-C Office Visit 08/21/2011 10:15a Main Office Sally Mckeon 616.10 Vaginitis & Jonnathan Suh Vulvovaginitis Unspec V69.2 Sexual Behavior High Risk Office Visit 07/26/2011 3:30p Main Office Shy Mejias, 463 Tonsillitis Acute FIRE PILOT-C Office Visit 06/11/2011 4:30p Main Office Sally Mckeon 616.10 Vaginitis & Jonnathan Suh Vulvovaginitis Unspec V25.09 Contraceptive Management Other Office Visit 05/11/2011 9:45a Main Office Courtney Quach 465.8 Upper Respiratory Jonnathan Merlos Infections Acute Other Multiple Sites Office Visit 11/21/2010 10:00a Main Office Sally Mckeon 238.2 Neoplasm Uncertain Jonnathan Suh Behavior Skin V10.82 History Personal Malignant Neoplasm Melanoma Of Skin Office Visit 06/26/2010 4:15p Main Office Baudilio Franklin 616.10 Vaginitis & Storm, FIRE PILOT-C Vulvovaginitis Unspec Office Visit 01/22/2010 3:30p Main Office Sally Mckeon 690.10 Seborrheic Dermatitis Jonnathan Suh Unspec 702.11 Seborrheic Keratosis Inflamed Office Visit 12/04/2009 10:45a Main Office Caron Soares, V72.42 PA-C Examination Or Test Positive Result Office Visit 10/05/2009 9:00a Main Office Baudilio Frnaklin 462 Pharyngitis Acute Storm, FIRE PILOT-C Office Visit 08/03/2009 3:30p Main Office Sally Mckeon 719.46 Pain Joint Lower Jonnathan Suh Leg Office Visit 05/12/2009 4:30p Main Office Baudilio Franklin 719.47 Pain Joint Ankle & Storm, FIRE PILOT-C Foot Office Visit 04/15/2009 10:15a Main Office Sally Mckeon 682.6 Cellulitis & Jonnathan Suh Abscess Leg Except Foot Office Visit 11/15/2008 10:15a Main Office Sally Mckeon 278.00 Obesity Unspec Jonnathan Suh Office Visit 09/05/2008 3:30p Main Office Baudilio Franklin 465.9 URI Upper Storm, FIRE PILOT-C Respiratory Infections Acute Unspec Sites Office Visit 02/12/2008 9:45a Main Office Baudilio Franklin 311 Depressive Disorder Storm, FIRE PILOT-C Not Elsewhere Spec 346.91 Migraine Unspec W/ Intractable Office Visit 12/01/2007 9:15a Main Office Sally Mckeon V70.0 Examination General Jonnathan Suh Medical Routine AT Health Care Facility V13.22 Personal HX Of Cervical Dysplasia V10.82 History Personal Malignant Neoplasm Melanoma Of Skin V06.8 Combination Diseases Other Vaccination & Inoculation V04.89 Need For Prophylactic Vaccination & Inoculation Other Virus Office Visit 10/30/2007 11:00a Main Office Sally Mckeon 311 Depressive Jonnathan Suh Disorder Not Elsewhere Spec Office Visit 10/07/2007 11:45a Main Office Sally Mckeon 311 Depressive Jonnathan Suh Disorder Not Elsewhere Spec Office Visit 10/02/2007 12:00p Main Office Sally Mckeon 172.5 Malignant Melanoma Jonnathan Suh Trunk Except Scrotum 278.01 Obesity Morbid 780.79 Malaise And Fatigue Other Office Visit 05/21/2002 12:15p Main Office Sally Mckeon 795.0 Papanicolaou Smear Jonnathan Suh Of Cervix Nonspecific Abnormal Office Visit 04/01/2002 9:45a Main Office Salena Donis, V72.3 Examination CONSUMER SERVICES CONSULTANT Gynecological Office Visit 01/20/2002 10:45a Main Office Aissatou Angel 465.9 URI Jarrod Wayne M.D. Respiratory Infections Acute Unspec Sites Office Visit 01/06/2002 4:15p Main Office Aissatou Angel 719.46 Pain Joint Lower Leg Jonnathan Wayne Plan of Treatment 10/14/2018 - Baudilio Carrera, FIRE PILOT-CR19.7 Diarrhea, unspecifiedComments:order stool cultures, BRAT diet, start probiotic, refer to GI...Abd flat plate to exclude partial blockage, s/p gastric bypass with post surgical stricturesFollow up:refer to GIR10.84 Generalized abdominal painNew Xrays: Abdomen,Single Anteroposterior View(KUB &/Or Flat Plate), Ordered: 10/14/18
[2018-10-24 01:17] LABS: ABS Basophils 0.1 10^3/ul (0-0.2); ABS Eosinophils 0.1 10^3/ul (0-0.6); ABS Lymphocytes 2.2 10^3/ul (1.0-4.8); ABS Monocytes 0.6 10^3/ul (0-0.8); ABS Neutrophils 4.4 10^3/ul (1.5-7.7); ABS Nucleated RBC 0 10^3/ul; Eosinophil % 1.4 %; Hematocrit 41 % (33-41); Hemoglobin 14.1 g/dL (12.0-16.0); Lymphocyte % 29.9 %; Mean Corpuscular HGB Conc 34 g/dL (31-36); Mean Corpuscular Hemoglobin 31 pg (27-31); Mean Corpuscular Volume 91 fL (80-97); Mean Platelet Volume 8.2 fL (7.4-10.4); Nucleated Red Blood Cells % 0.1; Platelet Count 227 10^3/uL (150-450); Red Blood Count 4.55 10^6 /uL (3.70-4.87); Red Cell Distribution Width 12 % (10.5-15); White Blood Count 7.4 10^3/uL (3.5-10.8)
[2018-10-24 01:34] LABS: ALT 11 U/L (7-52); AST 15 U/L (13-39); Albumin 4.6 g/dL (3.2-5.2); Albumin/Globulin Ratio 1.9 (1-3); Alkaline Phosphatase 69 U/L (34-104); Anion Gap 5 mmol/L (2-11); BUN/Creatinine Ratio 13.1 (8-20); Blood Urea Nitrogen 11 mg/dL (6-24); CO2 Carbon Dioxide 27 mmol/L (22-32); Calcium 9.4 mg/dL (8.6-10.3); Chloride 105 mmol/L (101-111); EGFR African American 93.4 (>60); EGFR Non-African American 77.2 (>60); Globulin 2.4 g/dL (2-4); Glucose 92 mg/dL (70-100); Potassium 4.4 mmol/L (3.5-5.0); Sodium 137 mmol/L (135-145)
[2018-10-24 01:40] LABS: HCG Pregnancy < 0.60 mIU/mL
--- NOTE | 2018-10-24 02:29 | ED ---
GI/ HPI - HPI Summary HPI Summary: This patient is a 33 year old F presenting to [facility] with a chief complaint of constipation that began two months ago and worsened in the past week. The patient rates the pain 3/10 in severity. Symptoms aggravated by nothing. Symptoms alleviated by nothing. Patient reports fatigue, abd pain, loss of appetite, recent weight loss, and leaking stool. - History of Current Complaint Chief Complaint: EDGeneral Time Seen by Provider: 10/24/18 02:22 Stated Complaint: "POS OBSTRUCTED BOWEL PER DOC" Hx Obtained From: Patient Hx Last Menstrual Period: Mirena IUD Onset/Duration: Started Weeks Ago, Still Present, Resolved - One week ago Timing: Constant Severity: Mild Current Severity: Mild Pain Intensity: 3 Location of Pain: Diffuse Associated Signs and Symptoms: Positive: Other: - Positive fatigue, abd pain, loss of appetite, recent weight loss, and leaking stool. Aggravating Factor(s): Nothing Alleviating Factor(s): Nothing - Additional Pertinent History Primary Care Physician: PAOLA - Allergy/Home Medications Allergies/Adverse Reactions: Allergies Allergy/AdvReac Type Severity Reaction Status Date / Time cephalexin Allergy Rash And Verified 01/26/18 11:56 Itching chlorhexidine Allergy Swelling Verified 01/26/18 11:56 [From Hibiclens] Penicillins Allergy Rash Verified 01/26/18 11:56 propoxyphene Allergy Rash And Verified 01/26/18 11:56 [From Darvocet-N] Itching PMH/Surg Hx/FS Hx/Imm Hx Previously Healthy: No Endocrine/Hematology History: Denies: Hx Diabetes, Hx Thyroid Disease Cardiovascular History: Denies: Hx Hypertension, Hx Pacemaker/ICD Respiratory History: Reports: Other Respiratory Problems/Disorders - DX OF PNEUMONIA 04/19/2013- none recently Denies: Hx Asthma, Hx Chronic Obstructive Pulmonary Disease (COPD) GI History: Denies: Hx Ulcer History: Denies: Hx Renal Disease Musculoskeletal History: Reports: Hx Arthritis - LEFT ANKLE, Hx Back Problems - L 4 L 5 ruptured discs Sensory History: Denies: Hx Contacts or Glasses, Hx Hearing Aid Opthamlomology History: Denies: Hx Contacts or Glasses Psychiatric History: Reports: Hx Anxiety, Hx Depression Denies: Hx Panic Disorder, Hx Substance Abuse - Cancer History Cancer Type, Location and Year: melanoma Hx Chemotherapy: No Hx Radiation Therapy: No - Surgical History Surgery Procedure, Year, and Place: 2003 LEFT ANKLE ORIF, [place]. 2003 LEFT ANKLE SCREWS REMOVED, [facility] [place]. 2006 BILATERAL BREAST REDUCTION, [place]. 2005 MELANOMA REMOVED FROM BACK, [place]. Nerve Reconstruction - Rt HAND -MIDDLE FINGER - Neuroma removed from right middle finger 2017. 2008 & 2010 ARTHROSCOPIC SURGERY LEFT ANKLE, [facility] ;SPECIALIST;. GASTRIC BYPASS - [place] 11/28/15 Hx Anesthesia Reactions: Yes - 1 time after melanoma removed, couldnt wake up Infectious Disease History: No Infectious Disease History: Reports: Traveled Outside the [place] in Last 30 Days - [facility], [facility] Denies: Hx Clostridium Difficile, Hx Hepatitis, Hx Human Immunodeficiency Virus (HIV), Hx of Known/Suspected MRSA, Hx Shingles, Hx Tuberculosis, Hx Known/ Suspected VRE, Hx Known/Suspected VRSA, History Other Infectious Disease - Family History Known Family History: Negative: Cardiac Disease, Hypertension, Diabetes - Social History Occupation: Employed Full-time Lives: Alone Alcohol Use: None Hx Substance Use: No Substance Use Type: Reports: None Hx Tobacco Use: No Smoking Status (MU): Never Smoked Tobacco Have You Smoked in the Last Year: No Review of Systems Positive: Fatigue Positive: Other - Positive constipation, loss of appetite, recent weight loss, and leaking stool. Positive: Weakness All Other Systems Reviewed And Are Negative: Yes Physical Exam - Summary Physical Exam Summary: Appearance: Well appearing, no pain distress Skin: warm, dry, reflects adequate perfusion Head/face: normal Eyes: EOMI, SIVA ENT: normal Neck: supple, non-tender Respiratory: CTA, breath sounds present Cardiovascular: RRR, pulses symmetrical Abdomen: diffuse abd tenderness, soft Musculoskeletal: normal, strength/ROM intact Neuro: normal, sensory motor intact, A&Ox3 Triage Information Reviewed: Yes Vital Signs On Initial Exam: Initial Vitals Temp Pulse Resp BP Pulse Ox 98.3 F 68 18 127/91 98 10/23/18 23:16 10/23/18 23:16 10/23/18 23:16 10/23/18 23:16 10/23/18 23:16 Vital Signs Reviewed: Yes Diagnostics - Vital Signs Vital Signs Temp Pulse Resp BP Pulse Ox 10/24/18 01:32 98.3 F 62 18 151/84 97 10/23/18 23:16 98.3 F 68 18 127/91 98 - Laboratory Lab Results: Lab Results 10/24/18 10/24/18 Range/Units 01:07 01:07 WBC 7.4 (3.5-10.8) 10^3/uL RBC 4.55 (3.70-4.87) 10^6 /uL Hgb 14.1 (12.0-16.0) g/dL Hct 41 (33-41) % MCV 91 (80-97) fL MCH 31 (27-31) pg MCHC 34 (31-36) g/dL RDW 12 (10.5-15) % Plt Count 227 (150-450) 10^3/uL MPV 8.2 (7.4-10.4) fL Neut % (Auto) 59.3 % Lymph % (Auto) 29.9 % Toole % (Auto) 8.4 % Eos % (Auto) 1.4 % Baso % (Auto) 1.0 % Absolute Neuts (auto) 4.4 (1.5-7.7) 10^3/ul Absolute Lymphs (auto) 2.2 (1.0-4.8) 10^3/ul Absolute Monos (auto) 0.6 (0-0.8) 10^3/ul Absolute Eos (auto) 0.1 (0-0.6) 10^3/ul Absolute Basos (auto) 0.1 (0-0.2) 10^3/ul Absolute Nucleated RBC 0 10^3/ul Nucleated RBC % 0.1 Sodium 137 (135-145) mmol/L Potassium 4.4 (3.5-5.0) mmol/L Chloride 105 (101-111) mmol/L Carbon Dioxide 27 (22-32) mmol/L Anion Gap 5 (2-11) mmol/L BUN 11 (6-24) mg/dL Creatinine 0.84 (0.51-0.95) mg/dL Est GFR ( Amer) 93.4 (>60) Est GFR (Non-Af Amer) 77.2 (>60) BUN/Creatinine Ratio 13.1 (8-20) Glucose 92 (70-100) mg/dL Calcium 9.4 (8.6-10.3) mg/dL Total Bilirubin 0.80 (0.2-1.0) mg/dL AST 15 (13-39) U/L ALT 11 (7-52) U/L Alkaline Phosphatase 69 (34-104) U/L Total Protein 7.0 (6.4-8.9) g/dL Albumin 4.6 (3.2-5.2) g/dL Globulin 2.4 (2-4) g/dL Albumin/Globulin Ratio 1.9 (1-3) Lipase 21 (11.0-82.0) U/L Beta HCG, Quant < 0.60 mIU/mL Result Diagrams: 10/24/18 01:07 10/24/18 01:07 Lab Statement: Any lab studies that have been ordered have been reviewed, and results considered in the medical decision making process. - CT CT Abdomen and Pelvis CT Interpretation Completed By: Radiologist Summary of CT Findings: CT abdomen and pelvis reveals, per radiologist, 1. Multiple prominent mesenteric lymph nodes, particularly in the left upper quadrant of the abdomen, which are nonspecific and may be due to infectious or inflammatory mild enteritis. 2. A 2.9 cm complex cyst with peripheral calcification in upper pole of the left kidney, Bosniak type II. Benign, no further follow-up. 3. A 1.2 cm left adrenal adenoma. 4. A 1.2 cm hepatic cyst versus hemangioma. Hepatic steatosis. 5. Mild splenomegaly. 6. A 2.2 cm right adnexal cyst. An IUD within endometrial cavity. ED physician has reviewed this radiology report. GIGU Course/Dx - Course Course Of Treatment: This patient is a 33 year old F presenting to [facility] with a chief complaint of constipation that began two months ago and worsened in the past week. Physical Exam Findings: Diffuse abd tenderness. CT abdomen and pelvis reveals, per radiologist, 1. Multiple prominent mesenteric lymph nodes, particularly in the left upper quadrant of the abdomen, which are nonspecific and may be due to infectious or inflammatory mild enteritis. 2. A 2.9 cm complex cyst with peripheral calcification in upper pole of the left kidney, Bosniak type II. Benign, no further follow-up. 3. A 1.2 cm left adrenal adenoma. 4. A 1.2 cm hepatic cyst versus hemangioma. Hepatic steatosis. 5. Mild splenomegaly. 6. A 2.2 cm right adnexal cyst. An IUD within endometrial cavity. Bloodwork and UA obtained. In the ED course the patient was given contrast and fluids. Patient will be discharged with and follow up from PCP. The patient is agreeable with this plan. - Diagnoses Differential Diagnoses - Female: Constipation, Diverticulitis Provider Diagnoses: Constipation, Nonspecific abdominal pain, Enteritis Discharge - Sign-Out/Discharge Documenting (check all that apply): Patient Departure - Discharge home Patient Received Moderate/Deep Sedation with Procedure: No - Discharge Plan Condition: Stable Disposition: HOME Patient Education Materials: Constipation (ED), Acute Abdominal Pain (ED), Enteritis (ED) Referrals: Baudilio Carrera NP [Primary Care Provider] - 2 Days Donavan Kirk MD [Medical Doctor] - 2 Days Additional Instructions: RETURN TO THE EMERGENCY DEPARTMENT FOR NEW OR WORSENING SYMPTOMS - Billing Disposition and Condition Condition: STABLE Disposition: Home - Attestation Statements Document Initiated by Marva: Yes Documenting Scribe: Genia Barnhart Provider For Whom Marva is Documenting (Include Credential): Dr. Bear Philip MD Scribe Attestation: Genia Kenney scribed for Dr. Bear Philip MD on 10/24/18 at 0638. Scribe Documentation Reviewed: Yes Provider Attestation: The documentation as recorded by the Genia ramirez accurately reflects the service I personally performed and the decisions made by , Dr. Bear Philip MD Status of Scribe Document: Viewed
[2018-10-24] MEDS ORDERED: NS 0.9% 1000 ML** 1,000 ML IV SCH (02:30)
[2018-10-24] MEDS ORDERED: Iohexol 300* (CONTRAST) 10 ML SDV IV ONE (02:56)
[2018-10-24 03:59] LABS: Urine Appearance Clear; Urine Bilirubin Negative (Negative); Urine Blood Negative (Negative); Urine Color Straw; Urine Glucose Negative (Negative); Urine Ketones Negative (Negative); Urine Nitrite Negative (Negative); Urine Protein Negative (Negative); Urine Specific Gravity 1.003 (1.010-1.030); Urine Urobilinogen Negative (Negative)
[2018-10-24 07:15] VITALS: BP 110/63
== END 2018-10-24 07:00 | disposition home or self-care (01) ==
LOC: ED 23:06
DX: K59.00 Constipation, unspecified (principal); K52.9 Noninfective gastroenteritis and colitis, unspecified; Z97.5 Presence of (intrauterine) contraceptive device; N28.1 Cyst of kidney, acquired; D35.02 Benign neoplasm of left adrenal gland; K76.0 Fatty (change of) liver, not elsewhere classified; R16.1 Splenomegaly, not elsewhere classified; F41.9 Anxiety disorder, unspecified; F32.9 Major depressive disorder, single episode, unspecified; Z88.3 Allergy status to other anti-infective agents; Z88.0 Allergy status to penicillin; Z88.8 Allergy status to other drugs, medicaments and biological substances; Z87.01 Personal history of pneumonia (recurrent)
CPT/HCPCS: 36415; 74177; 80053; 81003; 83690; 84702; 85025; 99283; Q9967

== ENCOUNTER 2020-03-24 05:01 | Inpatient (IN) ==
[2020-03-24] MEDS ORDERED: NS 0.9% 1000 ml BAG 1,000 ML IV ONE (05:05)
[2020-03-24] MEDS ORDERED: fentaNYL 100 mcg/2 ml 50 MCG/ML VIAL IV SLOW PU ONE (05:11)
[2020-03-24] MEDS ORDERED: Magnesium Sulf 4 GM/100 ML IV 4,000 MG/100 ML BAG IVPB ONE (05:32)
[2020-03-24] MEDS ORDERED: fentaNYL 100 mcg/2 ml 50 MCG/ML VIAL ONE (05:39)
[2020-03-24] MEDS ORDERED: Oxytocin 10 UNITS/ML 1 ML VIAL ONE ×3 (05:43→07:18)
[2020-03-24] MEDS ORDERED: Propofol 10 MG/ML 20 ML BTL ONE (05:43)
[2020-03-24] MEDS ORDERED: Sugammadex 500 MG/5 ML 5 ml VIAL IV PUSH ONE (05:43)
[2020-03-24] MEDS ORDERED: Midazolam 2 mg/2 ml VIAL 1 mg/ml 2 ml VIAL (2 mg) ONE (05:43)
[2020-03-24] MEDS ORDERED: Phenylephrine 40 mcg/mL 10mL (400mcg) SYRINGE ONE (05:43)
[2020-03-24] MEDS ORDERED: CEFOXITIN 2 GM ONE (05:43)
[2020-03-24] MEDS ORDERED: fentaNYL 250 mcg/5 ml 50 MCG/ML 5 ml VIAL (250 MCG) ONE (05:43)
[2020-03-24] MEDS ORDERED: Ondansetron 4 mg VIAL 2 MG/ML 2 ml VIAL ONE (05:43)
[2020-03-24] MEDS ORDERED: Rocuronium 50 mg VIAL 10 mg/ml 5 ml VIAL (50 mg) ONE (05:43)
[2020-03-24 05:44] LABS: ABS Lymphocytes 1.5 10^3/ul (1.0-4.8); ABS Monocytes 1.3 10^3/ul (0-0.8); ABS Neutrophils 18.8 10^3/ul (1.5-7.7); Eosinophil % 0.1 %; Hematocrit 28 % (35-47); Hemoglobin 9.6 g/dL (12.0-16.0); Lymphocyte % 7.1 %; Mean Corpuscular HGB Conc 34 g/dL (31-36); Mean Corpuscular Hemoglobin 31 pg (27-31); Mean Corpuscular Volume 90 fL (80-97); Platelet Count 285 10^3/uL (150-450); Red Blood Count 3.15 10^6 /uL (3.70-4.87); Red Cell Distribution Width 13 % (10-15); White Blood Count 21.7 10^3/uL (3.5-10.8)
[2020-03-24 05:52] LABS: INR 0.98 (0.82-1.09)
[2020-03-24 06:19] LABS: Albumin/Globulin Ratio 1.4 (1-3); BUN/Creatinine Ratio 15.3 (8-20); EGFR African American 110.3 (>60); EGFR Non-African American 91.1 (>60); Globulin 2.2 g/dL (2-4); Potassium 3.6 mmol/L (3.5-5.0); Total Bilirubin 0.4 mg/dL (0.2-1.0); Total Protein 5.2 g/dL (6.4-8.9)
[2020-03-24] MEDS ORDERED: HYDROmorphone 1 MG/1 ML SYRINGE IV PRN (06:33)
[2020-03-24] MEDS ORDERED: Ondansetron 4 mg VIAL 2 MG/ML 2 ml VIAL IV PRN (06:33)
[2020-03-24] MEDS ORDERED: Naloxone 0.4 mg VIAL 0.4 mg/ml 1 ml VIAL IV PRN (06:33)
[2020-03-24] MEDS ORDERED: Glycerin ADULT 2.4 gm SUPP PR PRN (06:42)
[2020-03-24] MEDS ORDERED: Dibucaine 1% OINT 28.35 GM TUBE PR PRN (06:42)
[2020-03-24] MEDS ORDERED: Witch Hazel PAD JAR TOPICAL PRN (06:42)
[2020-03-24] MEDS ORDERED: ceFOXitin 2 GM IVPREMIX 2 GM/50 ML BAG IVPB ONE (06:43)
[2020-03-24] MEDS: fentaNYL 100 mcg/2 ml 50 MCG/ML VIAL IV PRN ×2 (06:57→07:06)
[2020-03-24] MEDS ORDERED: Lactated Ringers 1000 ml BAG 1,000 ML IV SCH (07:00)
[2020-03-24] MEDS: Oxytocin in LR 20 UNITS/1,000 ML BAG IVPB SCH ×2 (07:19→09:47)
[2020-03-24 07:49] LABS: Hematocrit 30 % (35-47); Hemoglobin 10.6 g/dL (12.0-16.0); Mean Corpuscular HGB Conc 35 g/dL (31-36); Mean Corpuscular Hemoglobin 32 pg (27-31); Mean Corpuscular Volume 90 fL (80-97); Mean Platelet Volume 7.6 fL (7.4-10.4); Platelet Count 190 10^3/uL (150-450); Red Blood Count 3.36 10^6 /uL (3.70-4.87); Red Cell Distribution Width 14 % (10-15); White Blood Count 20.3 10^3/uL (3.5-10.8)
[2020-03-24 09:19] LABS: Hematocrit 27 % (35-47); Hemoglobin 9.3 g/dL (12.0-16.0)
[2020-03-24 16:42] VITALS: BP 132/76
== END 2020-03-24 17:00 | disposition home or self-care (01) | DRG 769 ==
LOC: EDSTATUS 05:01 → ED 05:01 → MCHOB 06:24
PROVIDERS: ADMIT Obstetrics & Gynecology; ATTEND Obstetrics & Gynecology
PROC: O.GYD&C (2020-03-24 06:40)